=== PATIENT | male | born 1970 | race Caucasian/White ===

== ENCOUNTER 2017-11-11 17:01 | Emergency (ER) | payer MEDICARE, OTHER ==
[~2017-11-11] VITALS: Ht 162.6 cm; Wt 63.5 kg
[~2017-11-11 17:01] MED LIST: ACET-73 GT; ACET650S11 RC; ACET650T10 GT; ACET650T10 PO; ALBU2.5V38 IH; AMIN30LI27 GT; ASCO500S2 GT; BISA10SU61 RC; CRAN3875 GT; DEXT1DRO6 EACHEYE; FERR300S JT; IPRA0.2S9 IH; LEVE250T2 GT; MAGN400O6 GT; METO25TA6 GT; MULT-1119 JT; NA P133E RC; Nutritional Supplement/Fiber GT; PANT40TA4 JT; PANT40VI GT; SACC250C GT; ZINC220C6 GT; [UNRECOGNIZED DRUG - CODE] IV
--- NOTE | 2017-11-11 17:02 | NUR ---
SHIKHA Bang FROM [facility] FOR FEVER >102 AND TACHYCARDIA SINCE 150. NEG SOB. SINUS TACHY 110. NEG OTHER DISTRESS. SAFETY MEASURES IN PLACE. AWAITING MD ROBERTSON. Addendum: 11/11/17 at 1803 by YASMINE PT NORMALLY OBTUNDED.
[2017-11-11] MEDS ORDERED: IV NS 0.9% 1,000 ML BAG IV ONE (17:30)
[2017-11-11] MEDS ORDERED: VANCOMYCIN 1 GM in IV D5W 250 ML IV ONE (17:30)
[2017-11-11] MEDS ORDERED: CEFEPIME 2 GM in IV D5W 50 ML IV ONE (17:30)
[2017-11-11] MEDS ORDERED: ACETAMINOPHEN 650 MG/SUPP.RECT RC ONE ×2 (17:30→18:14)
[2017-11-11 17:49] LABS: BASOPHILS % (AUTO) 0.2 % (0.0-2.0); EOSINOPHILS % (AUTO) 0.2 % (0.0-6.0); HEMATOCRIT 38 % (39-51); HEMOGLOBIN 12.7 g/dL (13.5-17.5); LYMPHOCYTES # (AUTO) 0.6 /CMM (0.8-4.8); LYMPHOCYTES % (AUTO) 4.1 % (20.0-44.0); MEAN CORPUSCULAR HEMOGLOBIN 31 PG (26.0-33.0); MEAN CORPUSCULAR HGB CONC 34 g/dl (31.0-36.0); MEAN CORPUSCULAR VOLUME 92 fL (80-96); MONOCYTES # (AUTO) 0.2 /CMM (0.1-1.30); MONOCYTES % (AUTO) 1.3 % (2.0-12.0); NEUTROPHILS % (AUTO) 94.2 % (43.0-81.0); PLATELET COUNT (AUTO) 379 /CMM (150-450); RDW COEFFICIENT OF VARIATION 13.2 (11.5-15.0); RED BLOOD CELL COUNT(AUTO) 4.12 MIL/uL (4.5-6.0); WHITE BLOOD COUNT (AUTO) 14.9 K/uL (4.3-11.0)
--- NOTE | 2017-11-11 17:56 | NUR ---
MD LEVINE WITH NON CONTRAST CT AT THIS TIME
--- NOTE | 2017-11-11 18:01 | NUR ---
PT BROUGHT TO CT
[2017-11-11 18:09] LABS: CARBON DIOXIDE 25 mmol/L (21-32); CHLORIDE 101 mmol/L (98-107); GLUCOSE 156 mg/dL (74-106); POTASSIUM 3.8 mmol/L (3.5-5.1); SODIUM SERUM 136 mmol/L (136-145); UREA NITROGEN, BLOOD 15 mg/dL (7-18)
[2017-11-11 18:15] LABS: ALANINE AMINOTRANSFERASE 30 U/L (12-78); ALBUMIN 3.4 g/dL (3.4-5.0); ALKALINE PHOSPHATASE 126 U/L (46-116); ASPARTATE AMINOTRANSFERASE 14 U/L (15-37); BILIRUBIN,DIRECT 0.3 mg/dL (0.0-0.2); BILIRUBIN,TOTAL 0.7 mg/dL (0.2-1.0); TOTAL PROTEIN, SERUM 7.8 g/dL (6.4-8.2)
[2017-11-11 18:17] LABS: TROPONIN I < 0.017 ng/mL (0.00-0.056)
[2017-11-11] MEDS ORDERED: MULT-439 GT (18:19)
[2017-11-11] MEDS ORDERED: CRAN3875 GT (18:19)
[2017-11-11] MEDS ORDERED: LACT-96 GT (18:19)
[2017-11-11] MEDS ORDERED: POTA20LI4 GT (18:19)
[2017-11-11] MEDS ORDERED: SACC250C GT (18:19)
[2017-11-11] MEDS ORDERED: DOCU50LI GT (18:19)
[2017-11-11] MEDS ORDERED: CITI500C GT (18:19)
[2017-11-11] MEDS ORDERED: HEPA50007 SQ (18:19)
[2017-11-11] MEDS ORDERED: FENO145T35 GT (18:19)
[2017-11-11] MEDS ORDERED: RANI15SY GT (18:19)
[2017-11-11] MEDS ORDERED: FURO20TA4 GT (18:19)
[2017-11-11] MEDS ORDERED: ATOR10TA GT (18:19)
[2017-11-11 18:27] LABS: INR 1.11 (0.85-1.15)
--- NOTE | 2017-11-11 18:30 | NUR ---
STRAIGHT CATH ORDERED BY .
[2017-11-11] MEDS ORDERED: TRIA15OI2 TP (18:31)
[2017-11-11] MEDS ORDERED: GEL100GE TD (18:31)
[2017-11-11 18:55] LABS: APPEARANCE,URINE Clear (CLEAR); BILIRUBIN,URINE Negative (NEGATIVE); BLOOD, URINE Negative Ery/uL (NEGATIVE); COLOR,URINE Yellow (YELLOW); KETONES,URINE Negative (NEGATIVE); LEUKOCYTE ESTERASE ,URINE Negative (NEGATIVE); NITRITE, URINE Negative (NEGATIVE); PH,URINE 8.5 (5.0-8.0); PROTEIN,URINE Negative (NEGATIVE); UGLUCOSE Negative (NEGATIVE); UROBILINOGEN,URINE 0.2 EU/dL (0.2)
--- NOTE | 2017-11-11 20:00 | NUR ---
SISTER, RENEA, BROTHER, DARELL, , CALL THEM WITH UPDATES AND WHEN PT GETS TRANSFERRED.
--- NOTE | 2017-11-11 20:04 | NUR ---
CALLED , LEFT MESSAGE ON VOICEMAIL
--- NOTE | 2017-11-11 20:15 | NUR ---
PT BROUGHT TO CT
[2017-11-11 20:20] LABS: LYMPHOCYTES % (MANUAL) 5 % (16-48); MONOCYTES % (MANUAL) 2 % (0-11.0); NEUTROPHILS % (MANUAL) 93 (42-76)
[2017-11-11] MEDS ORDERED: IOHEXOL-300 100 ML VIAL IV ONE ×2 (20:21→22:05)
--- NOTE | 2017-11-11 20:25 | NUR ---
REPAGED DR. COMBS
--- NOTE | 2017-11-11 20:31 | NUR ---
ASSISTING MD AT BEDSIDE WITH CENTRAL LINE INSERTION.
--- NOTE | 2017-11-11 20:34 | NUR ---
VERBAL ORDERS URINARY CATHETER INSERTION BY DR. BECERRA
--- NOTE | 2017-11-11 21:08 | NUR ---
CALLED [facility], SPOKE WITH TARYN, PRESENTED PT, SAID TO CALL HIM BACK AT [phone] WITH AN UPDATED TEMP. AND TO FAX HIM PT INFO AND FACESHEET TO [phone]
--- NOTE | 2017-11-11 21:40 | NUR ---
ORDER FOR CUFF TRACH. UNSUCCESSFUL ATTEMPT OF TRACH TUBE CHANGE TO A CUFF TRACH TUBE PER DR. RUCKER AT BEDSIDE REQUEST. PLACED PREVIOUS CUFFLESS TRACH PER DR. RUCKER REQUEST. SX DONE. BLEEDING NOTED. WILL CONTINUE TO MONITOR.
--- NOTE | 2017-11-11 21:46 | NUR ---
New IV line needed before CT HEAD scan, ER will call.
--- NOTE | 2017-11-11 22:11 | NUR ---
[place] [facility] [place]
--- NOTE | 2017-11-11 22:58 | NUR ---
CALLED [facility], TRANSFERRED CALL TO
--- NOTE | 2017-11-11 22:59 | NUR ---
RECEIVED CALL FROM TARYN AT [facility] [place], HE INFORMED ME ALL THE NEUROSURGEONS ARE IN SURGERY RIGHT NOW AND THAT HE CAN NOT PRESENT THE CASE TO THEM AND THAT HE ALSO HAS ANOTHER NEUROSURGERY CASE TO PRESENT WELL, HE WILL KEEP ME UPDATED THOUGH.
--- NOTE | 2017-11-11 23:28 | NUR ---
ENDORSED TO JASON KNOTT. PT STABLE CONDITION. SAFETY MEASURES IN PLACE.
--- NOTE | 2017-11-11 23:31 | NUR ---
Arturo vaca in [facility] - 11/11/17 at 2332 by YASMINE ASSISTING MD AT BEDSIDE WITH CENTRAL LINE INSERTION.
--- NOTE | 2017-11-11 23:40 | NUR ---
CALLED TARYN AT [facility] [place] TO ASK FOR AN ETA, HE SAID HE CAN NOT GIVE ME AN ETA AND THAT HE IS JUST WAITING TO HEAR FROM THE NEUROSURGEONS.
--- NOTE | 2017-11-11 23:52 | NUR ---
ENDORSED TO NURSE FUNK FOR SOLA.
--- NOTE | 2017-11-11 23:56 | NUR ---
patient is resting in er bed in youth nutritional monitor. patient skin is warm to touch, noted to be tachycardic in the 140's. v/s updated. will continue to monitor, awaiting call back for tranfer details
--- NOTE | 2017-11-12 | NUR ---
TURNED PATIENT TO LEFT SIDE
--- NOTE | 2017-11-12 01:02 | NUR ---
SPOKE TO TARYN ANDREWS AND STATES "ALL NEURO SURGEONS ARE STILL IN THE OR. I WILL LET YOU KNOW WHEN ONE COMES OUT".
--- NOTE | 2017-11-12 02:59 | NUR ---
CALLED [facility] AGAIN AND SPOKE TO REA CENTENO "THE NEURO SURGEONS ARE STILL IN THE OR AND WE ARE JUST WAITING FOR A CALL BACK". DR. BHATTI NOTIFIED
--- NOTE | 2017-11-12 03:48 | NUR ---
PATIENT IS RESTING IN ER BED, NO DISTRESS NOTED. WILL CONTINUE TO MONITOR. PATIENT IS NOTED TO BE TACHYCARDIC IN THE 140'S. BP WNL, WILL CONTINUE TO MONITOR
--- NOTE | 2017-11-12 04:15 | NUR ---
RESPIRATORY DISTRESS NOTED. PT TACHYPNEIC AND DIAPHORETIC. SATING 90% ON 35% FIO2. INCREASED FIO2 98% ON COOL AEROSOL AND ABG WAS TAKEN. POST ABG RESULTS SX PATIENT AND NOTICED MUCUS PLUG IN THE TRACH. MUCUS PLUG REMOVED AND PT APPEARS MORE COMFORTABLE. PT SATING AT 100% ON 98% FIO2. KEPT PT ON COOL AEROSOL ON 10L AT 98% FIO2 PER DR. BHATTI REQUEST. WILL CONTINUE TO MONITOR. Addendum: 11/12/17 at 0531 by SHOAIB HENDERSON RT Amended: Links added.
[2017-11-12 04:16] LABS: ABG BASE EXCESS -1.1 mmol/L; ABG OXYGEN SATURATION 93.2 % (92.0-98.5); ABG PCO2 31.1 mmHg (35.0-45.0); ABG PH 7.462 (7.350-7.450); ABG PO2 63.2 mmHg (75.0-100.0); AaDO2 604.3 mmHg; COHb 0.8 % (0.5-1.5); MetHb 0.5 % (0.0-1.5); SITE, ABG Right Radial
--- NOTE | 2017-11-12 05:04 | NUR ---
CALLED [facility] FOR UPDATES AND INFORMED "THEY ARE STILL IN OR, I CALLED ONE HOUR AGO AND THEY ARE STILL THERE".
--- NOTE | 2017-11-12 06:06 | NUR ---
RECEIVED CALL BACK FROM TARYN KING). STATES "I PRESENTED THE CASE TO KAYLEIGH THE RESIDENT, YOU WILL RECEIVED A CALL BACK SOON"
--- NOTE | 2017-11-12 06:20 | NUR ---
[place] [facility] [place] AND STATED "PT IS ACCEPTED TO [facility] BY DR. SHELDON THE RESIDENT. PT ERICKA GO TO ICU BUT NO BEDS AT THIS TIME; MAY BE AFTER 0900 BUT NO GUARANTEES".
--- NOTE | 2017-11-12 06:29 | NUR ---
PATIENT RESTING IN ER BED, NO DISTRESS NOTED, SKIN WARM. PATIENT IS NOTED TO BE TACHYCARDIC IN THE 140'S
--- NOTE | 2017-11-12 06:29 | NUR ---
VITAL SIGNS UPDATED.
--- NOTE | 2017-11-12 06:30 | NUR ---
PATIENT TURNED TO LEFT SIDE
--- NOTE | 2017-11-12 07:12 | NUR ---
RECEIVED REPORT FOR SOLA.
--- NOTE | 2017-11-12 07:12 | NUR ---
REPORT GIVEN TO ESPINOZA GOMEZ FOR SOLA
[2017-11-12] MEDS ORDERED: IV NS 0.9% 1,000 ML BAG IV ONE ×2 (07:30→14:00)
--- NOTE | 2017-11-12 07:30 | NUR ---
RT RECD PT ON 10L 98% 02 TRACHED WITH SHILEY 6 SATTING 100% TITRATED DOWN 02 10L 80%
--- NOTE | 2017-11-12 08:56 | NUR ---
CALLED [facility] FOR TRANSFER UPDATE. NO BEDS AVAILABLE AT THIS TIME.
--- NOTE | 2017-11-12 09:20 | NUR ---
RT TITRATED DOWN 02 10L 60% SATTING 98%
--- NOTE | 2017-11-12 10:10 | NUR ---
RT CHANGED PT TRACH TUBE FROM UNCUFFED SHILEY 6 TO CUFFED SHILEY [address] PLAZA PT ON RESP DISTRESS NEEDS TO BE PLACE 0ON MECH VENT Addendum: 11/12/17 at 1101 by JAKUB OLIVER RT TRACH TUBE CHANGED MINIMAL BLEEDING NOTED BILATERAL CHEST RISE EQUAL BREATH SOUND. SX YELLOW - RED SECRETIONS NO COMPLICATIONS
[2017-11-12] MEDS ORDERED: ACETAMINOPHEN 650 MG/SUPP.RECT RC ONE ×2 (10:13→10:30)
[2017-11-12 10:46] VITALS: BP 92/71
--- NOTE | 2017-11-12 10:58 | NUR ---
RT PLACE PT ON [facility] VENT AC 16 500 60% 02 +0 PEEP RN AND MD AWARE. VENT PLUGGED IN RED OUTLET AMBU BAG ON HOB ALARMS ON AND AUDIBLE PT SEEM COMFORTABLE ON ORDERED SETTINGS WILL CONTINUE TO MONITOR
--- NOTE | 2017-11-12 11:16 | NUR ---
AARON SIM: RN FOR ADMISSION AT [facility] [phone]
[2017-11-12 12:15] VITALS: BP 104/69
--- NOTE | 2017-11-12 12:26 | NUR ---
Spoke with Beatris [phone], She is working on paperwork told to follow-up in one hour.
--- NOTE | 2017-11-12 13:18 | NUR ---
Patient accepted at [facility] ICU Unit [address] Accept[address] Mcmahon Number for report is [phone] Bed control number is [phone]
--- NOTE | 2017-11-12 13:37 | NUR ---
[facility] ETA 1530 Transfer #[id number]
[2017-11-12] MEDS ORDERED: IBUPROFEN 600 MG TABLET PO ONE ×2 (13:56→14:00)
[2017-11-12 14:12] VITALS: BP 118/79
--- NOTE | 2017-11-12 14:24 | NUR ---
REPORT GIVEN TO MIHAELA GOMEZ FOR SOLA UPON TRANSFER.
[2017-11-12] MEDS ORDERED: VANCOMYCIN 1.5 GM in IV D5W 500 ML IV ONE (14:30)
[2017-11-12] MEDS ORDERED: CEFEPIME 2 GM in IV D5W 100 ML IV ONE (14:30)
[2017-11-12 16:22] VITALS: BP 112/67
[2017-11-12 16:35] VITALS: BP 104/64
--- NOTE | 2017-11-12 16:37 | NUR ---
REPORT GIVEN TO EMT AT BEDSIDE. PATIENT TRANSFERED TO [facility]. RN, MIHAELA TO PROVIDE SOLA UPON TRANSFER.
== END 2017-11-12 16:37 | disposition short-term general hospital (02) ==
LOC: ER 17:02
DX: A41.9 Sepsis, unspecified organism (principal); T85.09XA Other mechanical complication of ventricular intracranial (communicating) shunt, initial encounter; R50.9 Fever, unspecified; I10 Essential (primary) hypertension; J96.10 Chronic respiratory failure, unspecified whether with hypoxia or hypercapnia; Z87.820 Personal history of traumatic brain injury; R00.0 Tachycardia, unspecified; Z93.0 Tracheostomy status; Z93.1 Gastrostomy status
CPT/HCPCS: 36415; 36569; 36600 ×2; 51701; 70450; 70460; 71045 ×2; 80048; 80076; 81001; 82803; 83605 ×2; 84145; 84484; 85025; 85730; 87040 ×2; 87081; 87086; 93005; 94640; 96361; 96365; 96367; 96368; 99291; A4606 ×2; A7526; C1751 ×2; J0692 ×2; J3370 ×2; J7030 ×4; J7040; J7060 ×4; Q9967 ×2; 81000-TC; Z7610

== ENCOUNTER 2019-03-28 17:44 | Inpatient (IN) | payer MEDICARE, OTHER ==
[~2019-03-28] VITALS: Ht 182.9 cm; Wt 68.5 kg
[~2019-03-28 17:44] MED LIST changes: -ACET650S11 RC; -ACET650T10 GT; -ACET650T10 PO; -ALBU2.5V38 IH; -AMIN30LI27 GT; +ASCO-492 PO; -ASCO500S2 GT; -BISA10SU61 RC; +CHLO473M3 MM; +CITI500C GT; -CRAN3875 GT; +DEXT15DR6 OP; -DEXT1DRO6 EACHEYE; +DOCU50LI GT; +ENOX40DI SQ; +FAMO20TA8 PO; -FERR300S JT; +FERR325T23 PO; +FOLI1TAB16 GT; -LEVE250T2 GT; +LEVE500T9 GT; +MERO1VIA3 IV; -METO25TA6 GT; -MULT-1119 JT; -NA P133E RC; -Nutritional Supplement/Fiber GT; -PANT40TA4 JT; -PANT40VI GT; +POLY17PO4 PO; +PROT946L PO; -SACC250C GT; +THIA100V2 GT; +THIA100V2 PO; +VITA1TAB20 PO; -ZINC220C6 GT; -[UNRECOGNIZED DRUG - CODE] IV
--- NOTE | 2019-03-28 18:00 | NUR ---
FERMIN FROM [facility] FOR RAPID HR = 150, ON TRACH, GT PATENT, CONNECTED TO THE MONITOR AND PULSE OX. KEPT COMFORTABLE, WILL CONTINUE TO MONITOR ACCORDINGLY.
--- NOTE | 2019-03-28 18:23 | NUR ---
CALLED NURSING SUP FOR PICC LINE
[2019-03-28] MEDS ORDERED: ACETAMINOPHEN ES 500 MG TABLET NG ONE (18:30)
[2019-03-28] MEDS ORDERED: IV NS 0.9% 1,000 ML BAG IV ONE ×2 (18:30→19:30)
[2019-03-28] MEDS ORDERED: MULT-439 GT (18:31)
[2019-03-28] MEDS ORDERED: NUT.237L31 GT (18:31)
[2019-03-28] MEDS ORDERED: CRAN3875 GT (18:31)
[2019-03-28] MEDS ORDERED: ACET-73 PO (18:31)
[2019-03-28] MEDS ORDERED: SENN8.8S12 GT (18:31)
[2019-03-28] MEDS ORDERED: BISA10SU61 RC (18:31)
[2019-03-28] MEDS ORDERED: DIGO125T PO (18:31)
[2019-03-28] MEDS ORDERED: INSU100I35 SQ (18:31)
[2019-03-28] MEDS ORDERED: NUTR1PAC14 PO (18:31)
[2019-03-28] MEDS ORDERED: PROT946L PO (18:31)
[2019-03-28] MEDS ORDERED: ACET-868 GT (18:31)
[2019-03-28] MEDS ORDERED: ACETAMINOPHEN ES 500 MG TABLET ONE (18:37)
[2019-03-28 18:47] LABS: BASOPHILS # (AUTO) 0.2 /CMM (0.0-0.2); BASOPHILS % (AUTO) 0.7 % (0.0-2.0); EOSINOPHILS % (AUTO) 0.1 % (0.0-6.0); HEMATOCRIT 32 % (39-51); HEMOGLOBIN 10.7 g/dL (13.5-17.5); LYMPHOCYTES # (AUTO) 1.3 /CMM (0.8-4.8); LYMPHOCYTES % (AUTO) 5.3 % (20.0-44.0); MEAN CORPUSCULAR HGB CONC 33 g/dl (31.0-36.0); MEAN CORPUSCULAR VOLUME 88 fL (80-96); MONOCYTES # (AUTO) 1.8 /CMM (0.1-1.30); MONOCYTES % (AUTO) 7.6 % (2.0-12.0); NEUTROPHILS # (AUTO) 20.7 /CMM (1.8-8.9); NEUTROPHILS % (AUTO) 86.3 % (43.0-81.0); PLATELET COUNT (AUTO) 291 /CMM (150-450); RED BLOOD CELL COUNT(AUTO) 3.68 MIL/uL (4.5-6.0); WHITE BLOOD COUNT (AUTO) 24.1 K/uL (4.3-11.0)
[2019-03-28 19:02] LABS: CALCIUM, SERUM 9.3 mg/dL (8.5-10.1); CARBON DIOXIDE 26 mmol/L (21-32); CHLORIDE 94 mmol/L (98-107); CREATININE 0.8 mg/dL (0.6-1.3); GLUCOSE 265 mg/dL (74-106); POTASSIUM 3.9 mmol/L (3.5-5.1); SODIUM SERUM 134 mmol/L (136-145); UREA NITROGEN, BLOOD 16 mg/dL (7-18)
[2019-03-28 19:08] LABS: ALANINE AMINOTRANSFERASE 40 U/L (12-78); ALBUMIN 3.4 g/dL (3.4-5.0); ALKALINE PHOSPHATASE 114 U/L (46-116); ASPARTATE AMINOTRANSFERASE 12 U/L (15-37); BILIRUBIN,DIRECT 0.1 mg/dL (0.0-0.2); BILIRUBIN,TOTAL 0.8 mg/dL (0.2-1.0); TOTAL PROTEIN, SERUM 8.2 g/dL (6.4-8.2)
--- NOTE | 2019-03-28 19:14 | NUR ---
4.4 lactic acid, md moore aware
--- NOTE | 2019-03-28 19:24 | NUR ---
report given to Marilou GOMEZ for haroldo. Patient is going to room 261
--- NOTE | 2019-03-28 19:44 | NUR ---
report given to Betina GOMEZ to continue care.
[2019-03-28 19:53] LABS: APPEARANCE,URINE Slightly Cloudy (CLEAR); BILIRUBIN,URINE Negative (NEGATIVE); BLOOD, URINE Moderate Ery/uL (NEGATIVE); KETONES,URINE Negative (NEGATIVE); LEUKOCYTE ESTERASE ,URINE Negative (NEGATIVE); NITRITE, URINE Negative (NEGATIVE); PH,URINE 5.5 (5.0-8.0); PROTEIN,URINE 30 mg/dl (NEGATIVE); UGLUCOSE Negative (NEGATIVE); UROBILINOGEN,URINE 0.2 EU/dL (0.2)
[2019-03-28] MEDS ORDERED: CEFTRIAXONE 1GM BAG (ER ONLY) 50 ML IV ONE ×2 (19:55→20:00)
[2019-03-28 19:58] LABS: COLOR,URINE YELLOW (YELLOW)
--- NOTE | 2019-03-28 20:21 | NUR ---
pt was transferred to ICU under ACLS
[2019-03-28 20:22] VITALS: BP 134/75
[2019-03-28 20:24] LABS: BACTERIA,URINE Many /HPF (None Seen); SQUAMOUS EPITHELIAL CELL,UR Few /HPF (None Seen)
[2019-03-28 20:30] VITALS: BP 134/75
[2019-03-28] MEDS ORDERED: MAG HYDROX/AL HYDROX/SIMETH 30 ML UDC PO PRN (20:30)
[2019-03-28] MEDS ORDERED: ONDANSETRON HCL/PF 4 MG/2 ML VIAL IVP PRN (20:30)
[2019-03-28] MEDS ORDERED: MAGNESIUM HYDROXIDE 30 ML UDC PO PRN (20:30)
[2019-03-28] MEDS ORDERED: Z GUARD REMEDY 2 OZ OINT TP PRN (20:30)
[2019-03-28] MEDS ORDERED: ZOLPIDEM TARTRATE 5 MG TABLET PO PRN (20:30)
[2019-03-28 20:36] LABS: ABG BASE EXCESS -0.1 mmol/L; ABG PCO2 48.3 mmHg (35.0-45.0); ABG PH 7.346 (7.350-7.450); ABG PO2 143.1 mmHg (75.0-100.0); AaDO2 521.6 mmHg; COHb 0.3 % (0.5-1.5); MetHb 0.9 % (0.0-1.5); O2Hb 96.8 % (94.0-97.0); SITE, ABG Right Radial; VENT MODE, BG MASK
[2019-03-28 21:00] VITALS: BP 118/73
[2019-03-28] MEDS ORDERED: LEVOFLOXACIN 750 MG /D5W 150ML 750 MG in PREMIX 1 EA IV SCH (21:00)
--- NOTE | 2019-03-28 21:00 | NUR ---
RN NOTES ADMITTED PATIENT FROM ER OBTUNDED WITH TRACH ON COOL AEROSOL @ 15LPM USING HIS ACCESSORY MUSCLE TO BREATH, TACHYPNEIC RESP 37 AND TACHYCARDIC HR 137. PLACED ON SALES TECHNICIAN HOME THEATER REVEALS ST. HOB ELEVATED SUCTIONED PATIENT WITH SMALL MUCUS PLUGGED AND PATIENT STARTED TO BREATH BETTER. PATIENT DIAGNOSED WITH SEVERE SEPSIS FOR LACTIC ACID OF 4.4 2 MORE LITERS OF NS BOLUS ONGOING. TEMPERATURE AT THIS TIME IS 100.8 DEGREE FHARENHEIGHT ON AXILLARY AND 102.8 ON CORE TEMP VIA RECTAL. IV SITE ON LEIGHTON AND LEFT FOOT. SKIN ASSESSMENT DONE PHOTO TAKEN. COOLING MEASURES PROVIDED.
[2019-03-28] MEDS: LINEZOLID RTU BAG 600 MG in PREMIX 1 EA IV SCH (21:06)
[2019-03-28] MEDS: IV NS 0.9% 1,000 ML IV PRN (21:25)
[2019-03-28 22:30] VITALS: BP 113/75
[2019-03-28 23:00] VITALS: BP 118/76
--- NOTE | 2019-03-28 23:00 | NUR ---
RN NOTES BEASLEY CATHETER INSERTED WITH YELLOW CLEAR URINE OUTPUT. PICC LINE INSERTED WAITING FOR CXR RESULT TO CONFIRM PLACEMENT.
[2019-03-28 23:30] VITALS: BP 108/71
[2019-03-29] VITALS (37 sets, daily range): BP systolic 99–147; BP diastolic 63–76
--- NOTE | 2019-03-29 | NUR ---
RN NOTES INFORMED DR. SAHNI THAT CXR RESULT SHOWS PICC LINE IS IN THE PROXIMAL RIGHT ATRIUM AND LACTIC REFLEX RESULT 2.3 WAS REPORTED BY LAB. PER MD TO PULL THE PICC LINE ABOUT 4 CM OR RECOMMEND BY PICC NURSE AND REPEAT CXR. CALLED PICC LINE NURSE TO ADJUST.
[2019-03-29] MEDS ORDERED: PIPERACILLIN /TAZOBACTAM 3.375 G VIAL IV ONE (00:04)
[2019-03-29] MEDS: ZOSYN IVPB 3.375 G in IV D5W 50ml IV SCH ×2 (00:59→06:02)
--- NOTE | 2019-03-29 01:00 | NUR ---
RN NOTES PICC LINE NURSE CAME BACK AND ADJUST PICC LINE ORDERED. CXR DONE WITH THE RESULT OF THE TIP OF THE LINE IS IN CAVOATRIAL JUNCTION. PER MD OK TO USE THE LINE. RESTARTED IVF ORDERED. PATIENT IS RESTING AT THIS TIME. REMAINED ST ON 130'S COOLING BLANKET KEPT IN PLACED. TEMPERATURE IS 102.7 AT THIS TIME. IV ATB ONGOING WELL IVF . WILL CONTINUE TO MONITOR.
[2019-03-29] MEDS: ACETAMINOPHEN 325 MG TABLET PO PRN ×3 (03:48→22:05)
[2019-03-29 04:26] LABS: BASOPHILS # (AUTO) 0.1 /CMM (0.0-0.2); BASOPHILS % (AUTO) 0.5 % (0.0-2.0); EOSINOPHILS % (AUTO) 0.1 % (0.0-6.0); HEMATOCRIT 28 % (39-51); LYMPHOCYTES # (AUTO) 1.1 /CMM (0.8-4.8); MEAN CORPUSCULAR HGB CONC 33 g/dl (31.0-36.0); MEAN CORPUSCULAR VOLUME 88 fL (80-96); MONOCYTES # (AUTO) 2.4 /CMM (0.1-1.30); MONOCYTES % (AUTO) 8.7 % (2.0-12.0); NEUTROPHILS # (AUTO) 23.9 /CMM (1.8-8.9); NEUTROPHILS % (AUTO) 86.7 % (43.0-81.0); PLATELET COUNT (AUTO) 210 /CMM (150-450); RED BLOOD CELL COUNT(AUTO) 3.12 MIL/uL (4.5-6.0); WHITE BLOOD COUNT (AUTO) 27.5 K/uL (4.3-11.0)
[2019-03-29 04:51] LABS: CALCIUM, SERUM 8.5 mg/dL (8.5-10.1); CREATININE 0.7 mg/dL (0.6-1.3); MAGNESIUM 2.1 mg/dL (1.8-2.4); PHOSPHORUS 2.3 mg/dL (2.5-4.9); POTASSIUM 3.5 mmol/L (3.5-5.1)
--- NOTE | 2019-03-29 05:10 | NUR ---
RN NOTES VIRAJ FROM LAB CALLED REPORTED CRITICAL VALUE OF LACTIC ACID 2.8, DR. SAHNI MADE AWARE. CONTINUE WITH POC.
[2019-03-29 05:13] LABS: THYROID STIMULATING HORMONE 0.947 uIU/mL (0.358-3.74)
--- NOTE | 2019-03-29 07:11 | NUR ---
RN NOTES PATIENT REMAINED ST HR 127, LATEST TEMPERATURE 101.3 COOLING MEASURES AND COOLING BLANKET KEPT IN PLACED. ALL IV ATB ADMINISTERED ORDERED. CONTINUE ON IVF NS @ 150 ML/HR BEASLEY CATH DRAINED WELL KEPT OFF FROM THE FLOOR. KEPT PT CLEAN AND DRY. TURNED AND REPOSITIONED Q2H AND PRN. WILL ENDORSED CONTINUITY OF CARE TO AM NURSE.
--- NOTE | 2019-03-29 07:20 | NUR ---
RN INITIAL NOTES RECEIVED PT OBTUNDED, TRACH IN PLACE. ON T-PIECE 35%. HOB ELEVATED. NO SIGNS OF PAIN NOTED. PT SINUS TACHYCARDIA ON MONITOR. PT HAS FEVER, TEMP 101.3. COOLING BLANKET ON. LEIGHTON PICC IN PLACE. IVF INFUSING. GT IN PLACE, CLAMPED. FC IN PLACE. NO HEMATURIA NOTED. BLE ELEVATED. PT COMFORTABLE. WILL MONITOR
[2019-03-29] MEDS: PANTOPRAZOLE 40 MG VIAL IV SCH (08:30)
[2019-03-29] MEDS: IV NS 0.9% 1,000 ML IV PRN ×2 (08:30→17:23)
[2019-03-29] MEDS: LINEZOLID RTU BAG 600 MG in PREMIX 1 EA IV SCH ×2 (08:30→21:03)
[2019-03-29] MEDS: ENOXAPARIN SODIUM 40 MG/0.4 ML DISP.SYRIN SQ SCH (09:59)
--- NOTE | 2019-03-29 10:15 | NUR ---
RN NOTES SEEN AND EXAMINED BY DR TOMAS GARCIA. AWARE OF LAB VALUES AND CXR RESULT. PT FEBRILE, T 101.5. COOLING BLANKET ON. TYLENOL ORDERED. ON IVF AND IV ATBS. CULTURES PENDING. ORDERED ID CONSULT. WILL CLOSELY MONITOR
[2019-03-29] MEDS ORDERED: MEROPENEM 500 MG in IV NS 0.9% 50 ML IV ONE (11:00)
[2019-03-29] MEDS ORDERED: POTASSIUM PHOSPHATE MM 7.5 MMOL in IV D5W 100 ML IV SCH (12:00)
[2019-03-29] MEDS: MEROPENEM 1 G in IV NS 0.9% 100 ML IV SCH (17:17)
--- NOTE | 2019-03-29 18:52 | NUR ---
RN CLOSING NOTES PT OBTUNDED. TRACH IN PLACE. TOLERATING T-PIECE WELL. HOB ELEVATED. NO RESPIRATORY DISTRESS NOTED. NO SIGNS OF PAIN NOTED. SUCTIONED Q2 AND NEEDED. AFEBRILE. TEMP 98.8. REMAINS TACHYCARDIC, 112. IVF INFUSING. FC IN PLACE. ADEQUATE OUTPUT NOTED. KEPT CLEAN AND DRY. REPOSITIONING Q2. BLE ELEVATED. WILL ENDORSE FOR CONTINUITY OF CARE.
--- NOTE | 2019-03-29 19:30 | NUR ---
RN NOTES PATIENT EYES OPEN ON ISOLATION PRECAUTION FOR HX. OF ESBL URINE. OBTUNDED. TRACH PORTEX 7 AND COOL AEROSOL @ 8LPM AND 35% TOLERATED WELL SATURATION 98%. TEMPERATURE AT THIS TIME WAS 99.3. WARMTH TO TOUCH. SINUS TACHY HR 116 ON TELE MONITOR. IV SITE ON OLIVER PICC INTACT AND PATENT WITH GOOD BLOOD RETURN RUNNING WITH NS @ 150 ML/HR. TURNED AND REPOSITIONED FOR SKIN MANAGEMENT. KEPT PT CLEAN AND DRY. WILL CONTINUE TO MONITOR.
[2019-03-30] VITALS (40 sets, daily range): BP systolic 99–156; BP diastolic 60–77
[2019-03-30] MEDS: IV NS 0.9% 1,000 ML IV PRN ×3 (02:21→21:38)
[2019-03-30] MEDS: MEROPENEM 1 G in IV NS 0.9% 100 ML IV SCH ×3 (02:24→17:47)
[2019-03-30 04:19] LABS: BASOPHILS # (AUTO) 0.1 /CMM (0.0-0.2); BASOPHILS % (AUTO) 0.3 % (0.0-2.0); EOSINOPHILS % (AUTO) 0.1 % (0.0-6.0); HEMATOCRIT 25 % (39-51); HEMOGLOBIN 8.2 g/dL (13.5-17.5); LYMPHOCYTES # (AUTO) 0.8 /CMM (0.8-4.8); LYMPHOCYTES % (AUTO) 2.5 % (20.0-44.0); MEAN CORPUSCULAR HGB CONC 33 g/dl (31.0-36.0); MEAN CORPUSCULAR VOLUME 89 fL (80-96); MONOCYTES # (AUTO) 1.8 /CMM (0.1-1.30); MONOCYTES % (AUTO) 5.7 % (2.0-12.0); NEUTROPHILS % (AUTO) 91.4 % (43.0-81.0); PLATELET COUNT (AUTO) 193 /CMM (150-450); RED BLOOD CELL COUNT(AUTO) 2.83 MIL/uL (4.5-6.0)
[2019-03-30 04:28] LABS: CALCIUM, SERUM 8.7 mg/dL (8.5-10.1); CREATININE 0.6 mg/dL (0.6-1.3); POTASSIUM 3.2 mmol/L (3.5-5.1)
[2019-03-30 04:39] LABS: WHITE BLOOD COUNT (AUTO) 31.7 K/uL (4.3-11.0)
[2019-03-30 05:10] LABS: LYMPHOCYTES % (MANUAL) 1 % (16-48); MONOCYTES % (MANUAL) 6 % (0-11.0); NEUTROPHILS % (MANUAL) 91 (42-76)
[2019-03-30 05:11] LABS: BAND % (MANUAL) 2 % (0.0-5.0)
[2019-03-30] MEDS: ACETAMINOPHEN 325 MG TABLET PO PRN (06:21)
--- NOTE | 2019-03-30 06:47 | NUR ---
RN NOTES REMAINED ST 110-120, NO SIGNIFICANT CHANGES. WITH LOW GRADE FEVER TMAX 100 DEGREE FHARENHEIGHT. COOLING MEASURES PROVIDED. NO ACUTE RESPIRATORY DISTRESS. TRACH AND COOL AEROSOL TOLERATED WELL. SUCTIONED NEEDED AND Q2H. GT INTACT AND PATENT. IV PICC LINE INTACT WITH ONGOING IVF NS @ 150 ML/HR. BEASLEY CATH DRAINED WELL. KEPT PT CLEAN AND DRY. TURNED ND REPOSITIONED Q2H AND PRN. WILL CONTINUE POC.
--- NOTE | 2019-03-30 07:56 | NUR ---
WOUND CARE CONSULT: PT PRESENTS WITH MULTIPLE AREAS OF SCARRING INCLUDING LEFT LATERAL LOWER LEG AND HEEL, RT LATERAL ANKLE AND SACRUM EXTENDING TO BILATERAL BUTTOCKS WITH RASH AND PEELING SKIN TO BUTTOCKS, ALL PRESENT ON ADMISSION. RECOMMENDATIONS MADE FOR SKIN CARE AND PROTECTION. DISCUSSED WITH NURSING STAFF. FIRST STEP LOW AIRLOSS MATTRESS ON ORDER. WILL SEE PRN. CURRENT LIA SCORE IS 9.
--- NOTE | 2019-03-30 08:00 | NUR ---
ICU/RN INITIAL NOTES,AM RECEIVED BESIDE REPORT FROM NIGHT NURSE. PT OBTUNDED, DOES NOT FOLLOW COMMANDS. REACTS TO DEEP PAIN ONLY. PT ON COOL AEROSOL, MAINTAINING 02 SAT >95%. PT NOTED TO BE TACHYPNEIC, WITH LOW GRADE FEVER. SINUS TACH ON TELE. BEASLEY CATH IN PLACE, DRAINING YELLOW URINE. GTUBE CLAMPED. WOUND CONSULT COMPLETE, NEW ORDERS RECEIVED. PT WILL BE PLACED ON LOW AIR LOSS MATTRESS. ALL NEEDS WILL BE ATTENDED TO, SAFETY MEASURES TAKEN, BED IN LOW POSITION, SIDE RAILS UP, CALL LIGHT WITHIN REACH. LEFT UPPER ARM PICC LINE PATENT AND INTACT, IV FLUIDS INFUSING ORDERED.
[2019-03-30] MEDS: LINEZOLID RTU BAG 600 MG in PREMIX 1 EA IV SCH ×2 (08:11→21:31)
[2019-03-30] MEDS: PANTOPRAZOLE 40 MG VIAL IV SCH (08:11)
[2019-03-30] MEDS: ENOXAPARIN SODIUM 40 MG/0.4 ML DISP.SYRIN SQ SCH (08:12)
--- NOTE | 2019-03-30 08:45 | NUR ---
ICU/RN: 2 EPISODES OF LIQUID STOOL NOTED. PER MD WE ARE TO SEND C.DIFF SAMPLE. RECTAL TUBE INSERTED TO PROTECT THE SKIN.
[2019-03-30] MEDS: CLOTRIMAZOLE 1% 15 GM TUBE TP SCH ×2 (09:32→17:47)
[2019-03-30 09:51] LABS: ABG BASE EXCESS 1.2 mmol/L; ABG OXYGEN SATURATION 94.7 % (92.0-98.5); ABG PCO2 38.1 mmHg (35.0-45.0); ABG PO2 75.3 mmHg (75.0-100.0); AaDO2 166.1 mmHg; COHb 0.3 % (0.5-1.5); MetHb 0.7 % (0.0-1.5); O2Hb 93.8 % (94.0-97.0); SITE, ABG Right Radial; VENT MODE, BG CA 8L/M
--- NOTE | 2019-03-30 10:17 | NUR ---
RT PLACED PT ON VENT PER DR FOLEY. PER ORDER CHANGED TRACH TO PORTEX # 7 CUFFLESS TO CUFFED. VENT ALARMS CHECKED AND AUDIBLE. VENT PLUGGED IN RED OUTLET. SX WITH L RIANNA CORRALES. MADISON NOTED HOB. AIR VICE MARSHAL DONE AND TRACH IS SECURE. PT TOLERATING SETTINGS WELL, WILL CONTINUE TO MONITOR T/O SHIFT. Addendum: 03/30/19 at 1019 by HOSEA MUNOZ RT Amended: Links added.
--- NOTE | 2019-03-30 10:20 | NUR ---
ICU/RN: ABG DONE PER . POST GAS ORDERS RECEIVED TO PLACE PT ON VENTILATOR FOR SUPPORT. PT NOTED TO BE TACHYPNEIC, AND TACHYCARDIC WITH LOW GRADE FEVER. CUFFLESS TRACH CHANGED TO PORTEX 7 CUFFED AND PLACED ON VENT SETTINGS: AC 12, TV 500, 40% AND PEEP 5. WILL CONTINUE TO MONITOR AND ASSESS,
[2019-03-30] MEDS: POTASSIUM CL. PREMIX PERIPHER. 50 ML IV SCH ×4 (10:26→14:26)
--- NOTE | 2019-03-30 14:45 | NUR ---
ICU/RN: RIGHT FOOT NOTED TO BE MORE SWOLLEN THEN IN AM, WARMTH NOTED AND SLIGHT REDNESS. CALLED AND RECEIVED TLO ORDERS FOR VENOUS DOPPLER. DOPPLER DONE, NEGATIVE FOR DVT, WILL ELEVATE
--- NOTE | 2019-03-30 18:44 | NUR ---
ICU/RN ENDING NOTES,AM REPORT WILL BE ENDORSED TO NIGHT NURSE FOR SOLA. ALL NEEDS ATTENDED TO, SAFETY MEASURES TAKEN, BED IN LOW POSITION, SIDE RAILS UP, CALL LIGHT WITHIN REACH. PT VENT TO TRACH, NO DISTRESS NOTED. LOW GRADE TEMP NOTED, COOLING MEASURES TAKEN.
--- NOTE | 2019-03-30 20:00 | NUR ---
RN INITIAL NOTES,AM RECEIVED BESIDE REPORT FROM MORNING NURSE. PT OBTUNDED, DOES NOT FOLLOW COMMANDS. REACTS TO DEEP PAIN ONLY. PT IS VENT/ TRACH DEPENDANT AND TOLERATING SETTINGS WELL . PT NOTED TO HAVE LOW GRADE FEVER. SINUS TACH ON TELE. BEASLEY CATH IN PLACE, DRAINING YELLOW URINE.RECTAL TUBE IN PLACE DRAINING LIQUID STOOL. G-TUBE CLAMPED. ALL NEEDS WILL BE ATTENDED , SAFETY MEASURES TAKEN, BED IN LOW POSITION, SIDE RAILS UP, CALL LIGHT WITHIN REACH. LEFT UPPER ARM PICC LINE PATENT AND INTACT, IV FLUIDS INFUSING ORDERED.
[2019-03-31] VITALS (14 sets, daily range): BP systolic 93–125; BP diastolic 59–81
[2019-03-31] MEDS ORDERED: ACETAMINOPHEN 650 MG/SUPP.RECT RC PRN (00:30)
[2019-03-31] MEDS: MEROPENEM 1 G in IV NS 0.9% 100 ML IV SCH ×3 (02:36→17:01)
[2019-03-31 05:13] LABS: BASOPHILS # (AUTO) 0.1 /CMM (0.0-0.2); BASOPHILS % (AUTO) 0.3 % (0.0-2.0); EOSINOPHILS % (AUTO) 0.2 % (0.0-6.0); HEMATOCRIT 24 % (39-51); HEMOGLOBIN 7.7 g/dL (13.5-17.5); LYMPHOCYTES # (AUTO) 0.7 /CMM (0.8-4.8); LYMPHOCYTES % (AUTO) 2.8 % (20.0-44.0); MEAN CORPUSCULAR HGB CONC 32 g/dl (31.0-36.0); MEAN CORPUSCULAR VOLUME 89 fL (80-96); MONOCYTES # (AUTO) 1.4 /CMM (0.1-1.30); MONOCYTES % (AUTO) 5.1 % (2.0-12.0); NEUTROPHILS # (AUTO) 24.2 /CMM (1.8-8.9); NEUTROPHILS % (AUTO) 91.6 % (43.0-81.0); PLATELET COUNT (AUTO) 210 /CMM (150-450); WHITE BLOOD COUNT (AUTO) 26.4 K/uL (4.3-11.0)
[2019-03-31 05:22] LABS: CALCIUM, SERUM 8.6 mg/dL (8.5-10.1); CREATININE 0.4 mg/dL (0.6-1.3)
[2019-03-31] MEDS: IV NS 0.9% 1,000 ML IV PRN (05:22)
--- NOTE | 2019-03-31 07:21 | NUR ---
RN CLOSING NOTES PATIENT REMAINED ST DURING MY SHIFT, NO SIGNIFICANT CHANGES NOTED. WITH LOW GRADE FEVER TMAX 100.1 DEGREE FAHRENHEIT. COOLING MEASURES PROVIDED WITCH DECREASED TEMP TO 98F. NO ACUTE RESPIRATORY DISTRESS NOTED DURING MY SHIFT. TRACH/VENT SETTINGS TOLERATED WELL. SUCTIONED NEEDED AND REPOSITIONED Q2H. GT INTACT AND PATENT/ CLAMPED. LEFT UPPER ARM IV PICC LINE INTACT WITH ONGOING IVF NS @ 150 ML/HR. BEASLEY CATH DRAINED WELL ON GRAVITY. KEPT PT CLEAN AND DRY. WILL ENDORSE PATIENT CARE TO AM RN FOR SOLA.
--- NOTE | 2019-03-31 08:23 | NUR ---
received pt from grain operations manager, obtunded, ST, on the vent, lungs partially congested, no edema, J tube clamped, f/c good output, rectal tube- diarrhea, v/s stable, no pain, pt turned and repositioned.
[2019-03-31] MEDS: LINEZOLID RTU BAG 600 MG in PREMIX 1 EA IV SCH (09:01)
[2019-03-31] MEDS: PANTOPRAZOLE 40 MG VIAL IV SCH (09:01)
[2019-03-31] MEDS: CLOTRIMAZOLE 1% 15 GM TUBE TP SCH ×2 (09:01→17:01)
[2019-03-31] MEDS: ENOXAPARIN SODIUM 40 MG/0.4 ML DISP.SYRIN SQ SCH (09:02)
[2019-03-31] MEDS: POTASSIUM CL. PREMIX PERIPHER. 50 ML IV SCH ×5 (10:24→15:30)
[2019-03-31] MEDS ORDERED: IV D5W 1,000 ML IV PRN (10:43)
--- NOTE | 2019-03-31 12:00 | NUR ---
pt transferred to [facility], v/s stable, no pain, ACLS followed.
--- NOTE | 2019-03-31 12:39 | NUR ---
ced rn note received patient from [facility] , obtunded on tele monitor sr 107 , with g tube in place ,will start g tube feeding as ordered ,keep hob elevated all time,with trach to vent setting as ordered , ambu abg at hob , with rectal tube in place with liquid diet noted , on ivf as ordered , lt upper arm picc line in place , bed in lowest and locked position , call light within reach, will monitor
[2019-03-31] MEDS: GLUCERNA 1.2 1,000 ML BOTTLE GT PRN (13:02)
--- NOTE | 2019-03-31 15:56 | NUR ---
[facility] RN NOTES ROUNDS MADE, FAMILY MEMBER ON BEDSIDE, NEEDS ATTENDED, REPOSITIONED. CONTINUE TUBE FEEDING , NO RESIDUAL NOTED, KEPT CLEAN AND DRY, CALL LIGHT WITHIN REACH.
--- NOTE | 2019-03-31 18:39 | NUR ---
[facility] RN NOTES PATIENT REMAIN IN STABLE CONDITION, CONTINUE ON THE VENT AND GTUBE FEEDING TOLERATING WELL. F/C IN PLACE. RECTAL TUBE IN PLACE , FLUSHED WELL. ON ATB AND IV FLUIDS VIA PICC LINE. BED LOCK ON LOW POSITION. WILL CONTINUE TO MONITOR
--- NOTE | 2019-03-31 19:25 | NUR ---
[facility]/RN NOTES PATIENT IN BED, OBTUNDED, TRACH TO VENT WITH PRESCRIBED SETTINGS, TRACH INTACT, PATENT IN MIDLINE, BREATHING EVEN AND UNLABORED. NO SOB NOTED, NO S/S OF PAIN NOTED, G-TUBE IN PLACE, PATENT, CONNECTED TO FEEDING ORDERED, HOB ELEVATED, BEASLEY IN PLACE, PATENT DRAINING WELL WITH CLEAR YELLOW URINE, RECTAL TUBE IN PLACE, DRAINING WELL. PICC LINE PATENT RUNNING WITH FLUIDS AND ATB ORDERED. SAFETY MAINTAINED, BED AT THE LOWEST LOCKED POSITION, PATIENT ON TELE MONITORING SINUS TACHY. KEPT CLEAN AND DRY. WILL CONTINUE TO MONITOR PER PLAN OF CARE.
[2019-04-01] VITALS: BP 117/58
[2019-04-01] MEDS: MEROPENEM 1 G in IV NS 0.9% 100 ML IV SCH ×3 (02:27→17:01)
[2019-04-01 04:00] VITALS: BP 105/68
--- NOTE | 2019-04-01 05:01 | NUR ---
patient noted with temperature of 100.6, cooling measures initiated. PRN Tylenol given, will continue to monitor, in no acute distress, breathing even and unlabored on prescribed vent settings.
[2019-04-01] MEDS: ACETAMINOPHEN 325 MG TABLET PO PRN ×2 (05:05→11:13)
--- NOTE | 2019-04-01 05:52 | NUR ---
PATIENT TEMPERATURE DROPPED TO 99.0. WILL CONTINUE TO MONITOR
[2019-04-01 06:43] LABS: BASOPHILS % (AUTO) 0.3 % (0.0-2.0); EOSINOPHILS % (AUTO) 1.4 % (0.0-6.0); HEMATOCRIT 24 % (39-51); HEMOGLOBIN 7.7 g/dL (13.5-17.5); LYMPHOCYTES # (AUTO) 1.1 /CMM (0.8-4.8); LYMPHOCYTES % (AUTO) 7.8 % (20.0-44.0); MEAN CORPUSCULAR HGB CONC 32 g/dl (31.0-36.0); MEAN CORPUSCULAR VOLUME 88 fL (80-96); MONOCYTES # (AUTO) 0.9 /CMM (0.1-1.30); MONOCYTES % (AUTO) 6.5 % (2.0-12.0); NEUTROPHILS # (AUTO) 12.2 /CMM (1.8-8.9); PLATELET COUNT (AUTO) 291 /CMM (150-450); RED BLOOD CELL COUNT(AUTO) 2.72 MIL/uL (4.5-6.0); WHITE BLOOD COUNT (AUTO) 14.5 K/uL (4.3-11.0)
--- NOTE | 2019-04-01 06:45 | NUR ---
[facility]/RN NOTES PATIENT REMAINED IN BED, OBTUNDED, TRACH TO VENT WITH PRESCRIBED SETTINGS, TRACH INTACT, PATENT IN MIDLINE, BREATHING EVEN AND UNLABORED. NO SOB NOTED, NO S/S OF PAIN NOTED, G-TUBE IN PLACE, PATENT, CONNECTED TO FEEDING ORDERED, HOB ELEVATED, BEASLEY IN PLACE, PATENT DRAINING WELL WITH CLEAR YELLOW URINE, OUTPUT 1050 IN THIS SHIFT, RECTAL TUBE IN PLACE, DRAINING WELL 60CC IN THIS SHIFT. PICC LINE PATENT. SAFETY MAINTAINED, BED AT THE LOWEST LOCKED POSITION, PATIENT ON TELE MONITORING SINUS TACHY. ALL DUE MEDS GIVEN ORDERED, TREATMENTS RENDERED, TOLERATED WELL. KEPT CLEAN AND DRY. WILL ENDORSE TO AM SHIFT NURSE FOR SOLA.
[2019-04-01 07:11] LABS: CALCIUM, SERUM 8.4 mg/dL (8.5-10.1); CREATININE 0.8 mg/dL (0.6-1.3); POTASSIUM 3.3 mmol/L (3.5-5.1)
--- NOTE | 2019-04-01 07:30 | NUR ---
[facility]/RN NOTES PT IN BED, OBTUNEDED, WITH PORTEX 7 TO MECHANICAL VENT, SETTING ORDERED TOLERATING WELL. SATTING 100%. BREATHING EVEN AND UNLABORED. NO SOB NOTED, NO S/S OF PAIN NOTED, ST ON MONITOR HR 119. OLIVER PICC LINE FLUSHES WELL, CDI DRESSING. SITE CLEAR. G-TUBE IN PLACE, PATENT, CONNECTED TO FEEDING ORDERED, HOB ELEVATED, BEASLEY IN PLACE, PATENT DRAINING WELL WITH CLEAR YELLOW URINE, OUTPUT, RECTAL TUBE IN PLACE, DRAINING WELL, SEE NURSING FLOWSHEET FOR SKIN ISSUES. WILL PERFORM PRESCRIBED WOUND CARE IN A WHILE. SAFETY MAINTAINED, BED AT THE LOWEST LOCKED POSITION, KEPT CLEAN AND DRY. WILL CONT TO MONITOR.
[2019-04-01 08:00] VITALS: BP 104/59
[2019-04-01] MEDS: PANTOPRAZOLE 40 MG VIAL IV SCH (09:04)
[2019-04-01] MEDS: CLOTRIMAZOLE 1% 15 GM TUBE TP SCH ×2 (09:05→16:44)
[2019-04-01] MEDS: ENOXAPARIN SODIUM 40 MG/0.4 ML DISP.SYRIN SQ SCH (09:11)
[2019-04-01] MEDS ORDERED: Potassium Chloride 40 MEQ in IV D5W 1,000 ML IV PRN (09:20)
--- NOTE | 2019-04-01 09:30 | NUR ---
RN NOTES DUE MEDS GIVEN
[2019-04-01 12:00] VITALS: BP 100/62
--- NOTE | 2019-04-01 15:21 | NUR ---
RN NOTES REPORT GIVEN TO TYSON FOR SOLA
[2019-04-01 16:00] VITALS: BP_SYST 112; BP_SYST 93; BP_DIAS 62; BP_DIAS 66
[2019-04-01] MEDS: Potassium Chloride 40 MEQ in IV D5W 1,000 ML IV PRN (19:00)
--- NOTE | 2019-04-01 19:14 | NUR ---
[facility]/RN CLOSING NOTES PATIENT CONTINUES TO REMAIN IN STABLE CONDITION THROUGHOUT THE SHIFT. PROVIDED COMFORT AND SAFETY. OLIVER PICC LINE FLUSHES WELL, CDI DRESSING. SITE CLEAR. G-TUBE IN PLACE, PATENT, CONNECTED TO FEEDING ORDERED, HOB ELEVATED, BEASLEY IN PLACE, PATENT DRAINING WELL WITH CLEAR YELLOW URINE, OUTPUT, RECTAL TUBE IN PLACE, DRAINING WELL. ALL NEEDS ANTICIPATED. CALL LIGHT WITHIN REACHED. BED LOCKED AND IN LOWEST POSITION. SAFETY MAINTAINED. WILL CONTINUE TO MONITOR. ENDORSED TO PM NURSE FOR SOLA.
[2019-04-01 20:00] VITALS: BP 99/64
[2019-04-02] VITALS: BP 110/73
[2019-04-02] MEDS: MEROPENEM 1 G in IV NS 0.9% 100 ML IV SCH ×3 (02:07→17:37)
[2019-04-02 04:00] VITALS: BP 99/68
[2019-04-02] MEDS: Potassium Chloride 40 MEQ in IV D5W 1,000 ML IV PRN ×3 (04:43→22:36)
--- NOTE | 2019-04-02 05:50 | NUR ---
RN NOTES PATIENT IN BED RESSTING COMFORTABLY WITH NO DISTRESS NOTED. BREATHING EVEN AND UNLABORED. VENT SETTING WELL TOLERATED. NO PHYSICAL MANIFESTATION OF PAIN OR DISCOMFORT. OBTUNDED. VITAL SIGNS WNL. KEPT CLEAN AND DRY. WILL ENDORSE TO NEXT SHIFT FOR CONTINUITY OF CARE
[2019-04-02] MEDS: GLUCERNA 1.2 1,000 ML BOTTLE GT PRN ×2 (06:16→22:38)
[2019-04-02 07:07] LABS: BASOPHILS % (AUTO) 0.4 % (0.0-2.0); EOSINOPHILS % (AUTO) 2.2 % (0.0-6.0); HEMATOCRIT 28 % (39-51); HEMOGLOBIN 8.9 g/dL (13.5-17.5); LYMPHOCYTES % (AUTO) 9.4 % (20.0-44.0); MEAN CORPUSCULAR HGB CONC 32 g/dl (31.0-36.0); MEAN CORPUSCULAR VOLUME 89 fL (80-96); MONOCYTES # (AUTO) 0.8 /CMM (0.1-1.30); MONOCYTES % (AUTO) 8.2 % (2.0-12.0); NEUTROPHILS # (AUTO) 8.3 /CMM (1.8-8.9); NEUTROPHILS % (AUTO) 79.8 % (43.0-81.0); PLATELET COUNT (AUTO) 310 /CMM (150-450); RED BLOOD CELL COUNT(AUTO) 3.14 MIL/uL (4.5-6.0); WHITE BLOOD COUNT (AUTO) 10.4 K/uL (4.3-11.0)
[2019-04-02 07:48] LABS: CREATININE 0.6 mg/dL (0.6-1.3); POTASSIUM 4.2 mmol/L (3.5-5.1)
[2019-04-02 08:00] VITALS: BP 108/73
[2019-04-02] MEDS: PANTOPRAZOLE 40 MG VIAL IV SCH (10:00)
[2019-04-02] MEDS: ENOXAPARIN SODIUM 40 MG/0.4 ML DISP.SYRIN SQ SCH (10:01)
[2019-04-02 10:13] LABS: ABG BASE EXCESS 3.8 mmol/L; ABG PCO2 42.1 mmHg (35.0-45.0); ABG PH 7.445 (7.350-7.450); AaDO2 104.4 mmHg; COHb 0.3 % (0.5-1.5); MetHb 0.4 % (0.0-1.5); O2Hb 89.4 % (94.0-97.0); SITE, ABG Right Radial; VENT MODE, BG CPAP 5 / PS 15
[2019-04-02] MEDS ORDERED: MAGNESIUM HYDROXIDE 30 ML UDC GT PRN (11:30)
[2019-04-02] MEDS ORDERED: BISACODYL SUPP (10 MG) 10 MG/SUPP.RECT SUPP.RECT RC PRN (11:30)
[2019-04-02] MEDS ORDERED: IPRATROPIUM NEB FS 0.5 MG/2.5 ML AMPUL.NEB IH PRN (11:30)
--- NOTE | 2019-04-02 11:31 | NUR ---
FIO2 INCREASED FROM 30% TO 35% DUE TO 92% SPO2 Addendum: 04/02/19 at 1131 by ALEXIS CHONG RT Amended: Links added.
[2019-04-02 12:00] VITALS: BP 118/76
[2019-04-02] MEDS ORDERED: POLYVINYL ALCOHOL 15 ML BOTTLE OP PRN (12:00)
[2019-04-02] MEDS: PROSOURCE / PROSTAT (PYXIS) 30 ML UDC GT SCH ×2 (12:40→20:57)
[2019-04-02] MEDS: CHLORHEXIDINE GLUCONATE 15 ML UDC MM SCH ×2 (12:40→20:57)
[2019-04-02] MEDS: LEVETIRACETAM SOL (5 ML) 100 MG/ML UDC GT SCH ×2 (12:40→20:57)
[2019-04-02] MEDS: CLOTRIMAZOLE 1% 15 GM TUBE TP SCH ×2 (12:41→17:37)
[2019-04-02] MEDS: HYDROCODONE/APAP 5/325MG 1 EACH TABLET PO PRN (12:42)
[2019-04-02] MEDS ORDERED: METOPROLOL TARTRATE INJ 5 MG/5 ML AMPUL IVP PRN (13:00)
[2019-04-02] MEDS ORDERED: DEXTROSE 50%-WATER 50 ML DISP.SYRIN IV PRN ×2 (13:00)
[2019-04-02] MEDS ORDERED: INSULIN REGULAR, HUMAN 100 UNIT/ML 3 ML VIAL SQ PRN (13:00)
[2019-04-02] MEDS: BLOOD SUGAR DIAGNOSTIC 1 EACH STRIP IN SCH ×2 (13:01→17:37)
[2019-04-02] MEDS: IPRATROPIUM NEB FS 0.5 MG/2.5 ML AMPUL.NEB IH SCH ×2 (13:30→20:15)
[2019-04-02] MEDS: DIGOXIN 0.125 MG TABLET PO SCH (14:19)
[2019-04-02] MEDS: ACETAMINOPHEN 325 MG TABLET PO PRN (15:15)
[2019-04-02 16:00] VITALS: BP 97/69
[2019-04-02] MEDS ORDERED: Medication Not On Formulary EA (Cran/Vitc/Mannose/Inulin/Brom (Uti-Stat Liquid) 30 ML) GT SCH (17:00)
[2019-04-02] MEDS: INSULIN REGULAR, HUMAN 100 UNIT/ML 3 ML VIAL SQ PRN (17:42)
[2019-04-02] MEDS ORDERED: BLOOD SUGAR DIAGNOSTIC 1 EACH STRIP IN SCH (18:00)
--- NOTE | 2019-04-02 19:16 | NUR ---
[facility] RN OPENING NOTES RECEIVED PATIENT IN BED, OBTUNDED. IN NO APPARENT DISTRESS NOTED. ON TELE MONITOR ST WITH HR 100'S. ON MECHANICAL VENT TRACH SETTINGS: PORTEX 7, AC 12, TV 500, FIO2 35%, PEEP OF 5. TOLERATING WELL, SATURATING 100% AT THE MOMENT. BREATHING EVEN AND UNLABORED. NO SOB NOTED, NO S/S OF PAIN NOTED. IV SITE OLIVER PICC LINE FLUSHING AND PATENT, SITE C/D/I INTACT. G-TUBE IN PLACE, PATENT, CONNECTED TO FEEDING ORDERED, HOB ELEVATED. BEASLEY IN PLACE, PATENT DRAINING WELL WITH CLEAR YELLOW URINE. RECTAL TUBE IN PLACE, NO DRAIN NOTED AT THE MOMENT. SAFETY MEASURES MAINTAINED; BED LOCKED POSITION AND IN LOW POSITION, SIDE RAILS UP X2, CALL LIGHT WITHIN REACH. WILL CONT TO MONITOR PT CLOSELY.
[2019-04-02 20:00] VITALS: BP 100/68
[2019-04-02] MEDS: FAMOTIDINE (20 MG) 20 MG TABLET PO SCH (20:57)
[2019-04-02] MEDS ORDERED: INSULN 70/30 ASP+PRT/ASP MIX 100 UNIT/ML CARTRIDGE SQ SCH (21:00)
[2019-04-02] MEDS: SENNOSIDES 8.6 MG TABLET GT SCH (21:02)
[2019-04-02] MEDS: INSULIN NPH/REG 70/30 MIX INJ 100 UNIT/ML CARTRIDGE SQ SCH (21:13)
[2019-04-03] VITALS: BP 96/62
[2019-04-03] MEDS: BLOOD SUGAR DIAGNOSTIC 1 EACH STRIP IN SCH ×5 (00:33→23:33)
[2019-04-03] MEDS: INSULIN REGULAR, HUMAN 100 UNIT/ML 3 ML VIAL SQ PRN ×5 (00:37→23:34)
[2019-04-03] MEDS: IPRATROPIUM NEB FS 0.5 MG/2.5 ML AMPUL.NEB IH SCH ×4 (00:39→21:28)
[2019-04-03] MEDS: MEROPENEM 1 G in IV NS 0.9% 100 ML IV SCH ×3 (02:44→17:38)
[2019-04-03 04:00] VITALS: BP 98/62
[2019-04-03] MEDS: PROSOURCE / PROSTAT (PYXIS) 30 ML UDC GT SCH ×3 (05:46→20:54)
[2019-04-03] MEDS: INSULIN NPH/REG 70/30 MIX INJ 100 UNIT/ML CARTRIDGE SQ SCH ×3 (05:48→21:02)
--- NOTE | 2019-04-03 07:14 | NUR ---
[facility] RN CLOSING NOTES PATIENT RESTING IN BED, OBTUNDED. NO ACUTE CHANGES THROUGHOUT SHIFT. MECHANICAL VENT TRACH SETTINGS ORDERED, TOLERATING WELL. PT AFEBRILE. REPOSITIONED Q2H. PT KEPT CLEAN AND DRY. WOUND TX RENDERED ORDERED. SAFETY MEASURES MAINTAINED. ALL MD ORDERS ATTENDED. ENDORSED TO AM RN FOR SOLA.
[2019-04-03 08:00] VITALS: BP 98/65
--- NOTE | 2019-04-03 08:00 | NUR ---
[facility]/RN AM SHIFT INITIAL NOTES RECEIVED PT ASLEEP IN BED, PT OBTUNDED, NO GRIMACING OR ACUTE CHANGE OF CONDITION NOTED. ON VENT, C-PAP MODE (PS 15, FIO2 35% & PEEP 5), SATURATING @ 99%, RESPIRATIONS EVEN & UNLABORED, LUNG SOUNDS CLEAR, SUCTIONED FOR AIRWAY CLEARANCE. ON TELE WITH SINUS TACHY, HR 118, PT NOTED WITH ELEVATED TEMP 100.5 VIA AXILLARY. PICC LINE WITH ON GOING INFUSION OF KCL, 40MEQ IN D5W @ 125CC/HR. GT FEEDING ON @ 65CC/HR, NO GASTRIC RESIDUAL NOTED, FLUSHED, PATENT. BEASLEY CATHETER INTACT WITH YELLOW URINE OUTPUT. RECTAL RUBE INTACT WITH SOFT BROWN FECAL OUTPUT. PT IS COMFORTABLE, SCHEDULED AM MEDS TO BE GIVEN. CL WITHIN REACHED, SAFETY MAINTAINED AND ISOLATION OBSERVED. ON GOING MONITORING.
[2019-04-03] MEDS: FOLIC ACID 1 MG TABLET GT SCH (08:36)
[2019-04-03] MEDS: VITAMIN B COMP W-C 1 TAB TABLET PO SCH (08:36)
[2019-04-03] MEDS: FERROUS SULFATE (325 MG) 325 MG/TAB TABLET PO SCH (08:36)
[2019-04-03] MEDS: FAMOTIDINE (20 MG) 20 MG TABLET PO SCH ×2 (08:36→20:53)
[2019-04-03] MEDS: ENOXAPARIN SODIUM 40 MG/0.4 ML DISP.SYRIN SQ SCH (08:36)
[2019-04-03] MEDS: CHLORHEXIDINE GLUCONATE 15 ML UDC MM SCH ×2 (08:36→20:53)
[2019-04-03] MEDS: DOCUSATE SODIUM LIQ 100 MG/10 ML UDC GT SCH (08:36)
[2019-04-03] MEDS: MULTIVIT W/MINERALS 1 TAB TABLET PO SCH (08:36)
[2019-04-03] MEDS: LEVETIRACETAM SOL (5 ML) 100 MG/ML UDC GT SCH ×2 (08:36→20:53)
[2019-04-03] MEDS: ASCORBIC ACID 500 MG TABLET GT SCH (08:36)
[2019-04-03] MEDS: CLOTRIMAZOLE 1% 15 GM TUBE TP SCH ×2 (08:37→17:36)
[2019-04-03] MEDS: PANTOPRAZOLE 40 MG VIAL IV SCH (08:40)
[2019-04-03] MEDS ORDERED: Medication Not On Formulary EA (Arginine/Glutamine/Calcium Hmb (Juven Packet) 1 EACH) PO SCH (09:00)
[2019-04-03] MEDS: Potassium Chloride 40 MEQ in IV D5W 1,000 ML IV PRN ×2 (10:52→20:54)
[2019-04-03] MEDS: METOPROLOL TARTRATE 50 MG TABLET PO SCH ×2 (11:30→20:53)
[2019-04-03 12:00] VITALS: BP 98/64
[2019-04-03] MEDS: DIGOXIN 0.125 MG TABLET PO SCH (13:28)
[2019-04-03 16:00] VITALS: BP 92/62
[2019-04-03] MEDS: GLUCERNA 1.2 1,000 ML BOTTLE GT PRN (17:44)
--- NOTE | 2019-04-03 18:16 | NUR ---
RT RECD PT TRACH'D INTACT AND SECURED ON MECH VENT FREEMAN ORDERED SETTINGS ALARMS ON AND AUDIBLE BAG AND MASK AT HOB. SEE NEW WEANING ORDERS FOR [place] FOR AM SHIFT
--- NOTE | 2019-04-03 19:30 | NUR ---
TELE1/RN AM SHIFT END NOTES ALL NEEDS MET. NO ACUTE CHANGE OF CONDITION NOTED DURING THE SHIFT. PT ENDORSED TO PM NURSE TO CONTINUE CARE. CL WITHIN REACHED, SAFETY MAINTAINED AND ISOLATION OBSERVED.
[2019-04-03 20:00] VITALS: BP 120/66
[2019-04-03] MEDS: ACETAMINOPHEN 325 MG TABLET PO PRN (20:53)
--- NOTE | 2019-04-03 21:00 | NUR ---
DUPLICATING MACHINE OPERATOR NOTE: RECEIVED PT ON BED OBTUNDED WITH NO APPARENT DISTRESS NOTED. NO FACIAL GRIMACING OR ANY SIGNS OF PAIN NOTED. ON [facility] VENT, CPAP MODE, ABLE TO TOLERATE WELL. SATURATING WELL. SINUS TACHY ON TELE MONITOR HR 93BPM. LEFT UPPER ARM PICC LINE INTACT AND PATENT, IVF INFUSING WELL. FLEXISEAL AND BEASLEY CATH INTACT AND DRAINING WELL. KEPT CLEAN, DRY AND COMFORTABLE. SAFETY AND FALL PRECAUTIONS OBSERVED AND MAINTAINED. WILL CONTINUE TO MONITOR PT. Addendum: 04/04/19 at 0207 by RIGOBERTO PEREZ RN SINUS TACHY HR 123 BPM
[2019-04-03] MEDS: SENNOSIDES 8.6 MG TABLET GT SCH (21:04)
[2019-04-04] VITALS: BP 108/67
[2019-04-04] MEDS: MEROPENEM 1 G in IV NS 0.9% 100 ML IV SCH ×3 (01:18→17:11)
[2019-04-04] MEDS: IPRATROPIUM NEB FS 0.5 MG/2.5 ML AMPUL.NEB IH SCH ×4 (01:47→19:11)
--- NOTE | 2019-04-04 03:35 | NUR ---
Pt rec'd trached on [facility] vent on CPAP mode. No resp distress or SOB noted. Trach is patent and secured. Sx'd for thick mod amt of yellow secretions. alarms are set and audible. Vent plugged into red outlet. Ambu bag bedside. Will continue tominitor closely. Addendum: 04/04/19 at 0337 by HAZEL EMERY RT Amended: Links added.
[2019-04-04 04:00] VITALS: BP 120/68
[2019-04-04] MEDS: BLOOD SUGAR DIAGNOSTIC 1 EACH STRIP IN SCH ×3 (05:13→17:17)
[2019-04-04] MEDS: INSULIN NPH/REG 70/30 MIX INJ 100 UNIT/ML CARTRIDGE SQ SCH ×3 (05:14→22:33)
[2019-04-04] MEDS: PROSOURCE / PROSTAT (PYXIS) 30 ML UDC GT SCH ×3 (05:14→22:19)
[2019-04-04] MEDS: INSULIN REGULAR, HUMAN 100 UNIT/ML 3 ML VIAL SQ PRN ×3 (05:15→17:19)
[2019-04-04 06:24] LABS: BASOPHILS # (AUTO) 0.1 /CMM (0.0-0.2); BASOPHILS % (AUTO) 0.6 % (0.0-2.0); EOSINOPHILS % (AUTO) 4.3 % (0.0-6.0); HEMATOCRIT 27 % (39-51); HEMOGLOBIN 8.7 g/dL (13.5-17.5); LYMPHOCYTES # (AUTO) 2.2 /CMM (0.8-4.8); LYMPHOCYTES % (AUTO) 19.6 % (20.0-44.0); MEAN CORPUSCULAR HGB CONC 32 g/dl (31.0-36.0); MEAN CORPUSCULAR VOLUME 87 fL (80-96); MONOCYTES % (AUTO) 8.8 % (2.0-12.0); NEUTROPHILS # (AUTO) 7.5 /CMM (1.8-8.9); NEUTROPHILS % (AUTO) 66.7 % (43.0-81.0); PLATELET COUNT (AUTO) 367 /CMM (150-450); RED BLOOD CELL COUNT(AUTO) 3.13 MIL/uL (4.5-6.0); WHITE BLOOD COUNT (AUTO) 11.2 K/uL (4.3-11.0)
[2019-04-04 06:49] LABS: CREATININE 0.8 mg/dL (0.6-1.3); POTASSIUM 4.1 mmol/L (3.5-5.1)
--- NOTE | 2019-04-04 07:17 | NUR ---
BOARD MIXER TENDER NOTE: NO CHANGES NOTED THROUGHOUT THE SHIFT. NO APPARENT DISTRESS NOTED. NO FACIAL GRIMACING OR ANY SIGNS OF PAIN NOTED. ON [facility] VENT, SETTINGS ORDERED. ON TELE MONITOR SINUS TACHY HR 123 BPM. GT INTACT AND PATENT, ABLE TO TOLERATE FEEDING WELL. LEFT UPPER ARM PICC LINE INTACT AND PATENT, CALLED PHARMACY REGARDING NEW BAG OF IVF KCL 40 MEQS IN IV D5W, PER PHARMACY THEY'RE WAITING FOR THE POTASSIUM LEVEL FOR TODAY. ENDORSED TO DAY SHIFT RN TO FOLLOW UP.
--- NOTE | 2019-04-04 07:18 | NUR ---
RT Pt received trached on mechanical ventilation. Pt switched back to AC mode due to apnea. Vent is plugged into red outlet. No SOB or respiratory distress noted at this time. Addendum: 04/04/19 at 0804 by CHILANGO WONG RT Amended: Links added.
[2019-04-04 08:00] VITALS: BP 121/69
--- NOTE | 2019-04-04 08:00 | NUR ---
TELE1/RN AM SHIFT INITIAL NOTES PT RECEIVED ASLEEP, EASILY AROUSED, OBTUNDED, OPEN EYES, NO GRIMACING OR ACUTE RESPIRATORY DISTRESS NOTED. PT WAS ON C-PAP MODE BUT PLACED BACK ON AC MODE AT TURNED OF SHIFT. SATURATING @ 99, RESPIRATIONS EVEN AND UNLABORED, LUNG SOUNDS CLEAR, SUCTIONED FOR AIRWAY CLEARANCE. ON TELE WITH SINUS TACHY, HR 123. PICC LINE WITH ON GOING INFUSION OF KCL 40MEQ IN D5W @ 125CC/HR. GT FEEDING ON GOING @ 65CC/HR, NO GASTRIC RESIDUAL NOTED, FLUSHED, PATENT, BEASLEY CATHETER INTACT WITH YELLOW URINE OUTPUT. RECTAL TUBE INTACT WITH BROWN COLORED FECAL OUTPUT. PT IS COMFORTABLE, SCHEDULED AM MEDS TO BE GIVEN. CL WITHIN REACHED, SAFETY MAINTAINED AND ISOLATION OBSERVED. ON GOING MONITORING.
[2019-04-04] MEDS: CHLORHEXIDINE GLUCONATE 15 ML UDC MM SCH ×2 (09:13→22:17)
[2019-04-04] MEDS: LEVETIRACETAM SOL (5 ML) 100 MG/ML UDC GT SCH ×2 (09:13→22:16)
[2019-04-04] MEDS: DOCUSATE SODIUM LIQ 100 MG/10 ML UDC GT SCH (09:13)
[2019-04-04] MEDS: PANTOPRAZOLE 40 MG VIAL IV SCH (09:13)
[2019-04-04] MEDS: FERROUS SULFATE (325 MG) 325 MG/TAB TABLET PO SCH (09:14)
[2019-04-04] MEDS: FOLIC ACID 1 MG TABLET GT SCH (09:14)
[2019-04-04] MEDS: ACETAMINOPHEN 325 MG TABLET PO PRN (09:14)
[2019-04-04] MEDS: METOPROLOL TARTRATE 50 MG TABLET PO SCH ×2 (09:14→21:00)
[2019-04-04] MEDS: FAMOTIDINE (20 MG) 20 MG TABLET PO SCH ×2 (09:14→22:16)
[2019-04-04] MEDS: MULTIVIT W/MINERALS 1 TAB TABLET PO SCH (09:14)
[2019-04-04] MEDS: ASCORBIC ACID 500 MG TABLET GT SCH (09:14)
[2019-04-04] MEDS: VITAMIN B COMP W-C 1 TAB TABLET PO SCH (09:14)
[2019-04-04] MEDS: CLOTRIMAZOLE 1% 15 GM TUBE TP SCH ×2 (09:15→17:12)
[2019-04-04] MEDS: ENOXAPARIN SODIUM 40 MG/0.4 ML DISP.SYRIN SQ SCH (09:16)
[2019-04-04] MEDS: Potassium Chloride 40 MEQ in IV D5W 1,000 ML IV PRN ×2 (09:19→17:51)
--- NOTE | 2019-04-04 09:45 | NUR ---
RT Pt placed on cool aerosol per Dr. De La Fuente order/request. Dr. De La Fuente is aware of moments of apnea. No respiratory distress noted at this time. Addendum: 04/04/19 at 0959 by CHILANGO WONG RT Amended: Links added.
--- NOTE | 2019-04-04 09:45 | NUR ---
KYE/JASON WEANING - COOL AEROSOL PT PLACED ON COOL AEROSOL WITH 35% FIO2, 8L OF O2. MONITORING. Addendum: 04/04/19 at 1123 by JOIE WOODRUFF RN ADDENDUM: ABG RESULTS, PT TOLERATING ON COOL AEROSOL, WILL CONTINUE MONITORING. DR. OG BROWN.
[2019-04-04] MEDS: GLUCERNA 1.2 1,000 ML BOTTLE GT PRN (10:45)
--- NOTE | 2019-04-04 11:00 | NUR ---
TELE1/RN ROUNDS - DR. CARTER UPDATED PT'S CONDITION. PT SEEN & EXAMINED BY DR. CARTER. CONFIRMED WITH MD TO CONTINUE IV INFUSION OF KCL 40MEQ IN DW5 @ 125CC/HR. NO NEW ORDER RECEIVED.
[2019-04-04 11:07] LABS: ABG BASE EXCESS 4.9 mmol/L; ABG PCO2 47.2 mmHg (35.0-45.0); ABG PH 7.421 (7.350-7.450); ABG PO2 90.3 mmHg (75.0-100.0); AaDO2 104.4 mmHg; COHb 0.2 % (0.5-1.5); MetHb 0.7 % (0.0-1.5); O2Hb 95.1 % (94.0-97.0); SITE, ABG Right Radial; VENT MODE, BG COOL AEROSOL 35%
--- NOTE | 2019-04-04 11:38 | NUR ---
RT Pt is tolerating cool aerosol, no signs of SOB or respiratory distress noted. Addendum: 04/04/19 at 1416 by CHILANGO WONG RT Amended: Links added.
[2019-04-04 12:00] VITALS: BP 116/60
[2019-04-04] MEDS: DIGOXIN 0.125 MG TABLET PO SCH (12:22)
[2019-04-04 16:00] VITALS: BP 128/67
--- NOTE | 2019-04-04 17:00 | NUR ---
TELE1/RN AFTERNOON ROUNDS PM CARE PROVIDED, PT TOLERATING COOL AEROSOL. NO CHANGE OF CONDITION. ON GOING MONITORING.
--- NOTE | 2019-04-04 19:30 | NUR ---
TELE1/RN AM SHIFT END NOTES ALL NEEDS MET. NO ACUTE CHANGE OF CONDITION NOTED DURING THE SHIFT, TOLERATING COOL AEROSOL. PT ENDORSED TO PM NURSE TO CONTINUE CARE. CL WITHIN REACHED, SAFETY MAINTAINED AND ISOLATION OBSERVED.
[2019-04-04 20:00] VITALS: BP 91/58
[2019-04-04 20:13] LABS: APPEARANCE,URINE CLEAR (CLEAR); BILIRUBIN,URINE NEGATIVE (NEGATIVE); BLOOD, URINE MODERATE Ery/uL (NEGATIVE); COLOR,URINE YELLOW (YELLOW); KETONES,URINE NEGATIVE (NEGATIVE); LEUKOCYTE ESTERASE ,URINE NEGATIVE (NEGATIVE); NITRITE, URINE NEGATIVE (NEGATIVE); PH,URINE 7.5 (5.0-8.0); PROTEIN,URINE NEGATIVE (NEGATIVE); UGLUCOSE NEGATIVE (NEGATIVE); UROBILINOGEN,URINE 0.2 EU/dL (0.2)
[2019-04-04 20:24] LABS: BACTERIA,URINE Rare /HPF (None Seen); RBC,URINE 21-50 /HPF (0-2); SQUAMOUS EPITHELIAL CELL,UR Few /HPF (None Seen); WBC,URINE 0-2 /HPF (0-3)
[2019-04-04] MEDS: SENNOSIDES 8.6 MG TABLET GT SCH (22:16)
--- NOTE | 2019-04-04 22:54 | NUR ---
LACQUER MAKER NOTE DEJA HELD BP 91/58 DOUBLE CHECKED BY ME.
[2019-04-05] VITALS (9 sets, daily range): BP systolic 97–124; BP diastolic 60–90
[2019-04-05] MEDS: BLOOD SUGAR DIAGNOSTIC 1 EACH STRIP IN SCH ×4 (00:25→18:24)
[2019-04-05] MEDS: INSULIN REGULAR, HUMAN 100 UNIT/ML 3 ML VIAL SQ PRN ×4 (00:28→18:31)
[2019-04-05] MEDS: MEROPENEM 1 G in IV NS 0.9% 100 ML IV SCH ×3 (01:41→18:24)
[2019-04-05] MEDS: Potassium Chloride 40 MEQ in IV D5W 1,000 ML IV PRN ×3 (02:02→21:41)
[2019-04-05] MEDS: IPRATROPIUM NEB FS 0.5 MG/2.5 ML AMPUL.NEB IH SCH ×4 (02:23→19:30)
[2019-04-05] MEDS: PROSOURCE / PROSTAT (PYXIS) 30 ML UDC GT SCH ×3 (04:17→21:34)
[2019-04-05] MEDS: ACETAMINOPHEN 325 MG TABLET PO PRN (04:18)
[2019-04-05] MEDS: GLUCERNA 1.2 1,000 ML BOTTLE GT PRN ×2 (04:45→21:41)
[2019-04-05] MEDS: INSULIN NPH/REG 70/30 MIX INJ 100 UNIT/ML CARTRIDGE SQ SCH ×3 (06:15→21:58)
[2019-04-05 07:13] LABS: BASOPHILS # (AUTO) 0.1 /CMM (0.0-0.2); BASOPHILS % (AUTO) 0.7 % (0.0-2.0); HEMATOCRIT 26 % (39-51); HEMOGLOBIN 8.6 g/dL (13.5-17.5); LYMPHOCYTES # (AUTO) 1.6 /CMM (0.8-4.8); LYMPHOCYTES % (AUTO) 12.8 % (20.0-44.0); MEAN CORPUSCULAR HGB CONC 33 g/dl (31.0-36.0); MEAN CORPUSCULAR VOLUME 86 fL (80-96); MONOCYTES # (AUTO) 0.9 /CMM (0.1-1.30); MONOCYTES % (AUTO) 7.1 % (2.0-12.0); NEUTROPHILS # (AUTO) 9.4 /CMM (1.8-8.9); NEUTROPHILS % (AUTO) 76.4 % (43.0-81.0); PLATELET COUNT (AUTO) 379 /CMM (150-450); RED BLOOD CELL COUNT(AUTO) 3.03 MIL/uL (4.5-6.0); WHITE BLOOD COUNT (AUTO) 12.3 K/uL (4.3-11.0)
--- NOTE | 2019-04-05 07:17 | NUR ---
BLOCK MECHANIC CLOSING NOTE PATIENT IN BED WITH NO SIGN OF ANY DISTRESS. TOLERATING 8L OF O2 WITH COOL AEROSOL. NO SIGNS OF ANY SOB. TEMPERATURE HAS DECREASED AFTER ADMINISTRATION OF TYLENOL. ALL SAFETY PRECAUTIONS HAVE BEEN APPLIED. ENDORSED PATIENT TO MORNING SHIFT NURSE.
[2019-04-05 07:23] LABS: CALCIUM, SERUM 8.6 mg/dL (8.5-10.1); CREATININE 0.8 mg/dL (0.6-1.3); MAGNESIUM 2.4 mg/dL (1.8-2.4); PHOSPHORUS 3.5 mg/dL (2.5-4.9); POTASSIUM 4.2 mmol/L (3.5-5.1)
--- NOTE | 2019-04-05 08:00 | NUR ---
RN NOTES PATIENT ON BED, IN STABLE CONDITION, OBTUNDED, ON THE VENT AND GTUBE FEEDING TOLERATING WELL. F/C IN PLACE. RECTAL TUBE IN PLACE , FLUSHED WELL. IV FLUIDS VIA PICC LINE. BED LOCK ON LOW POSITION. REPOSITIONED, KEPT CLEAN AND WILL CONTINUE TO MONITOR
[2019-04-05] MEDS: METOPROLOL TARTRATE 50 MG TABLET PO SCH ×2 (09:00→22:06)
[2019-04-05 09:31] LABS: BILIRUBIN,DIRECT 0.1 mg/dL (0.0-0.2); BILIRUBIN,TOTAL 0.4 mg/dL (0.2-1.0)
--- NOTE | 2019-04-05 09:37 | NUR ---
rn note spoke with YONI Bethea, reported lactic acid 2.2, no new orders at this time. pt afebrile.
[2019-04-05] MEDS: FERROUS SULFATE (325 MG) 325 MG/TAB TABLET PO SCH (11:04)
[2019-04-05] MEDS: LEVETIRACETAM SOL (5 ML) 100 MG/ML UDC GT SCH ×2 (11:05→21:33)
[2019-04-05] MEDS: MULTIVIT W/MINERALS 1 TAB TABLET PO SCH (11:05)
[2019-04-05] MEDS: ASCORBIC ACID 500 MG TABLET GT SCH (11:05)
[2019-04-05] MEDS: FOLIC ACID 1 MG TABLET GT SCH (11:05)
[2019-04-05] MEDS: DOCUSATE SODIUM LIQ 100 MG/10 ML UDC GT SCH (11:05)
[2019-04-05] MEDS: VITAMIN B COMP W-C 1 TAB TABLET PO SCH (11:05)
[2019-04-05] MEDS: CHLORHEXIDINE GLUCONATE 15 ML UDC MM SCH ×2 (11:05→21:33)
[2019-04-05] MEDS: PANTOPRAZOLE 40 MG VIAL IV SCH (11:05)
[2019-04-05] MEDS: FAMOTIDINE (20 MG) 20 MG TABLET PO SCH ×2 (11:05→21:33)
[2019-04-05] MEDS: ENOXAPARIN SODIUM 40 MG/0.4 ML DISP.SYRIN SQ SCH (11:07)
[2019-04-05] MEDS: CLOTRIMAZOLE 1% 15 GM TUBE TP SCH ×2 (11:12→17:00)
[2019-04-05] MEDS: DIGOXIN 0.125 MG TABLET PO SCH (13:21)
[2019-04-05] MEDS: HYDROCODONE/APAP 5/325MG 1 EACH TABLET PO PRN (15:39)
--- NOTE | 2019-04-05 20:00 | NUR ---
FLOUR TESTER NOTE PT IN BED OBTUNDED. ON T PIECE 8L O2 COOL AEROSOL 35 FIO2 O2 SAT 100%. NO DISTRESS OR DISCOMFORT NOTED. NO S/S OF PAIN NOTED. GTF GLUCERNA INFUSING AT 65 ML/HR, 0 ML RESIDUAL NOTED. KEPT HOB ELEVATED. ON TELE ST 120'S. FLEXI SEAL INTACT AND PATENT DRAINING LIQUIDY STOOL BROWNISH IN COLOR. F/C INTACT AND PATENT DRAINING YELLOWISH COLOR URINE. IVF D5W WITH 40 MEQ KCL INFUSING AT 125 ML/HR, NO S/S OF INFILTRATION NOTED. PICC LINE OLIVER INTACT AND PATENT. PT REMAIN IN ISOLATION FOR ESBL URINE. ISOLATION PRECAUTIONS TAKEN. REPOSITION HIM Q2H, KEPT HIM DRY AND CLEAN. ALL NEEDS ATTENDED. CONTINUE TO MONITOR HIM.
[2019-04-05] MEDS: SENNOSIDES 8.6 MG TABLET GT SCH (22:00)
[2019-04-06] VITALS (7 sets, daily range): BP systolic 92–140; BP diastolic 57–89
[2019-04-06] MEDS: BLOOD SUGAR DIAGNOSTIC 1 EACH STRIP IN SCH ×4 (00:38→17:21)
[2019-04-06] MEDS: INSULIN REGULAR, HUMAN 100 UNIT/ML 3 ML VIAL SQ PRN ×3 (00:39→12:24)
[2019-04-06] MEDS: IPRATROPIUM NEB FS 0.5 MG/2.5 ML AMPUL.NEB IH SCH ×4 (01:00→19:50)
[2019-04-06] MEDS: MEROPENEM 1 G in IV NS 0.9% 100 ML IV SCH ×3 (01:34→17:21)
[2019-04-06] MEDS: PROSOURCE / PROSTAT (PYXIS) 30 ML UDC GT SCH ×3 (05:14→21:10)
[2019-04-06] MEDS: Potassium Chloride 40 MEQ in IV D5W 1,000 ML IV PRN ×2 (05:29→19:22)
[2019-04-06] MEDS: INSULIN NPH/REG 70/30 MIX INJ 100 UNIT/ML CARTRIDGE SQ SCH ×2 (05:55→12:30)
[2019-04-06 06:40] LABS: BASOPHILS # (AUTO) 0.1 /CMM (0.0-0.2); BASOPHILS % (AUTO) 0.6 % (0.0-2.0); EOSINOPHILS % (AUTO) 3.8 % (0.0-6.0); HEMATOCRIT 27 % (39-51); HEMOGLOBIN 8.7 g/dL (13.5-17.5); LYMPHOCYTES # (AUTO) 2.4 /CMM (0.8-4.8); LYMPHOCYTES % (AUTO) 18.1 % (20.0-44.0); MEAN CORPUSCULAR HGB CONC 33 g/dl (31.0-36.0); MEAN CORPUSCULAR VOLUME 86 fL (80-96); MONOCYTES % (AUTO) 7.7 % (2.0-12.0); NEUTROPHILS # (AUTO) 9.1 /CMM (1.8-8.9); NEUTROPHILS % (AUTO) 69.8 % (43.0-81.0); PLATELET COUNT (AUTO) 391 /CMM (150-450); RED BLOOD CELL COUNT(AUTO) 3.11 MIL/uL (4.5-6.0); WHITE BLOOD COUNT (AUTO) 13.1 K/uL (4.3-11.0)
--- NOTE | 2019-04-06 06:40 | NUR ---
SHREDDING SPECIALIST NOTE PT IN BED OBTUNDED. REMAIN ON COOL AEROSOL TOLERATING WELL. O2 SAT 98%. NO DISTRESS OR DISCOMFORT NOTED. NO S/S OF PAIN NOTED. GTF INFUSING WELL, 0 ML RESIDUAL NOTED. KEPT HOB ELEVATED. IVF INFUSING WELL, NO S/S OF INFILTRATION NOTED. ON TELE ST HR 117 AT THIS TIME. REPOSITION HIM Q2H, KEPT HIM DRY AND CLEAN. FLEX SEAL INTACT AND PATENT DRAINING BROWNISH COLOR LIQUIDY STOOL. F/C INTACT AND PATENT DRAINING YELLOWISH COLOR URINE. SIDE RAILS UP X 2 AND CALL LIGHT WITHIN REACH. WILL ENDORSE TO DAY SHIFT NURSE FOR CONTINUE TO CARE.
[2019-04-06 06:50] LABS: CALCIUM, SERUM 8.5 mg/dL (8.5-10.1); CREATININE 0.7 mg/dL (0.6-1.3); MAGNESIUM 2.6 mg/dL (1.8-2.4); PHOSPHORUS 3.4 mg/dL (2.5-4.9); POTASSIUM 4.4 mmol/L (3.5-5.1)
[2019-04-06] MEDS: LEVETIRACETAM SOL (5 ML) 100 MG/ML UDC GT SCH ×2 (08:57→21:09)
[2019-04-06] MEDS: VITAMIN B COMP W-C 1 TAB TABLET PO SCH (08:57)
[2019-04-06] MEDS: CHLORHEXIDINE GLUCONATE 15 ML UDC MM SCH ×2 (08:57→21:09)
[2019-04-06] MEDS: DOCUSATE SODIUM LIQ 100 MG/10 ML UDC GT SCH (09:00)
[2019-04-06] MEDS: ASCORBIC ACID 500 MG TABLET GT SCH (09:07)
[2019-04-06] MEDS: PANTOPRAZOLE 40 MG VIAL IV SCH (09:08)
[2019-04-06] MEDS: FOLIC ACID 1 MG TABLET GT SCH (09:08)
[2019-04-06] MEDS: MULTIVIT W/MINERALS 1 TAB TABLET PO SCH (09:09)
[2019-04-06] MEDS: FERROUS SULFATE (325 MG) 325 MG/TAB TABLET PO SCH (09:09)
[2019-04-06] MEDS: FAMOTIDINE (20 MG) 20 MG TABLET PO SCH ×2 (09:09→21:09)
[2019-04-06] MEDS: METOPROLOL TARTRATE 50 MG TABLET PO SCH ×2 (09:10→21:00)
[2019-04-06] MEDS: ENOXAPARIN SODIUM 40 MG/0.4 ML DISP.SYRIN SQ SCH (09:12)
[2019-04-06] MEDS: CLOTRIMAZOLE 1% 15 GM TUBE TP SCH ×2 (09:14→17:41)
[2019-04-06] MEDS: DIGOXIN 0.125 MG TABLET PO SCH (12:32)
[2019-04-06] MEDS ORDERED: DEXTROSE 50%-WATER 50 ML DISP.SYRIN IV PRN (15:00)
[2019-04-06] MEDS ORDERED: IV NS 0.9% 500 ML IV ONE (15:00)
--- NOTE | 2019-04-06 15:00 | NUR ---
rn note during pt care and bed bath, pt's g-tube dislodged out of stoma, which was reinserted back, MARGARINE CHURN OPERATOR Neema contacted, and ordered KUB with Gastropraphin contrast, to check for placement. will order and follow up with results with md.
[2019-04-06] MEDS ORDERED: DIATR MEGLU/DIATRIZOATE SODIUM 30 ML BOTTLE (GASTROGRAPHIN) ONE (15:53)
--- NOTE | 2019-04-06 19:00 | NUR ---
RN note relayed results for kub to marguerite Royay to resume tube feeding. will follow through. insulin held at 1700, because was unsure about tube feeding and pt was npo at the time.
[2019-04-06] MEDS: GLUCERNA 1.2 1,000 ML BOTTLE GT PRN (19:22)
--- NOTE | 2019-04-06 20:17 | NUR ---
RT PT RECEIVED ON CA 8L. PT IS TRACHED, PORTEX 7. CA BOTTLE IS HALF FULL. SMALL, WHITE, THICK SECRETIONS SUCTIONED. PT IN NO APPARENT RESPIRATORY DISTRESS. AMBU BAG AT HEAD OF BED. WILL CONTINUE TO MONITOR. Addendum: 04/06/19 at 2020 by LIS SANDS RT Amended: Links added.
[2019-04-06] MEDS: SENNOSIDES 8.6 MG TABLET GT SCH (21:09)
[2019-04-06] MEDS: HYDROCODONE/APAP 5/325MG 1 EACH TABLET PO PRN (21:10)
[2019-04-07] VITALS (8 sets, daily range): BP systolic 87–125; BP diastolic 50–72
[2019-04-07] MEDS: BLOOD SUGAR DIAGNOSTIC 1 EACH STRIP IN SCH ×4 (00:26→17:14)
[2019-04-07] MEDS: Potassium Chloride 40 MEQ in IV D5W 1,000 ML IV PRN (00:27)
[2019-04-07] MEDS: INSULIN REGULAR, HUMAN 100 UNIT/ML 3 ML VIAL SQ PRN ×4 (00:32→17:10)
[2019-04-07] MEDS: MEROPENEM 1 G in IV NS 0.9% 100 ML IV SCH ×2 (01:31→09:40)
[2019-04-07] MEDS: HYDROCODONE/APAP 5/325MG 1 EACH TABLET PO PRN ×2 (01:32→05:50)
[2019-04-07] MEDS: IPRATROPIUM NEB FS 0.5 MG/2.5 ML AMPUL.NEB IH SCH ×4 (01:49→20:06)
[2019-04-07] MEDS: PROSOURCE / PROSTAT (PYXIS) 30 ML UDC GT SCH ×3 (05:47→21:21)
--- NOTE | 2019-04-07 07:50 | NUR ---
RN NOTE RECEIVED PATIENT IN BED WITH HOB ELEVATED, WITH TRACH ON COOL AEROSOL ON 8L, OBTUNDED, ON TELE MONITOR SINUS TACHY, FLEXISEAL IN PLACE AND FLUSHING WEL, GT PATENT IN PLACE AND FLUSHING WELL, CURRENTLY ON GLUCERNA RUNNING AT 65ML/HR. LUE PICC LINE WITH ONLY ONE PORT FLUSHING WELL. BEASLEY CATHETER IN PLACE WITH YELLOW CLEAR URINE, REPOSITIONED PATIENT AND KEPT CLEAN GLADYS DRY NO INDICATIONS OF PAIN AT THIS TIME, WILL CONTINUE TO MONITOR.
[2019-04-07] MEDS: METOPROLOL TARTRATE 50 MG TABLET PO SCH ×2 (09:00→21:00)
--- NOTE | 2019-04-07 09:01 | NUR ---
RN NOTE PATIENT NOTED WITH HYPOTENSION. BLOOD PRESURE CHECKED TWICE. CURRENTLY 86/60 HR 113. CURRENTLY ON IVF POTASSIUM CHOLIRIDE 40MQ IN D5W RUNNING AT 125ML/HR. WILL HOLD LOPRESSOR. PAGED DR. AVILES.
--- NOTE | 2019-04-07 09:15 | NUR ---
RN NOTE TRACI TRUONG NOTIFIED ABOUT HYPOTENSION. PT CURRENTLY NOT IN DISTRESS. MD STATES TO NOTIFY HOSPITALIST. WILL FOLLOW UP.
[2019-04-07] MEDS: FERROUS SULFATE (325 MG) 325 MG/TAB TABLET PO SCH (09:19)
[2019-04-07] MEDS: FAMOTIDINE (20 MG) 20 MG TABLET PO SCH ×2 (09:20→21:22)
[2019-04-07] MEDS: PANTOPRAZOLE 40 MG VIAL IV SCH (09:20)
[2019-04-07] MEDS: FOLIC ACID 1 MG TABLET GT SCH (09:20)
[2019-04-07] MEDS: DOCUSATE SODIUM LIQ 100 MG/10 ML UDC GT SCH (09:20)
[2019-04-07] MEDS: VITAMIN B COMP W-C 1 TAB TABLET PO SCH (09:20)
[2019-04-07] MEDS: ASCORBIC ACID 500 MG TABLET GT SCH (09:20)
[2019-04-07] MEDS: CHLORHEXIDINE GLUCONATE 15 ML UDC MM SCH ×2 (09:20→21:22)
[2019-04-07] MEDS: LEVETIRACETAM SOL (5 ML) 100 MG/ML UDC GT SCH ×2 (09:20→21:23)
[2019-04-07] MEDS: MULTIVIT W/MINERALS 1 TAB TABLET PO SCH (09:20)
[2019-04-07] MEDS: CLOTRIMAZOLE 1% 15 GM TUBE TP SCH ×2 (09:21→16:12)
[2019-04-07] MEDS: ENOXAPARIN SODIUM 40 MG/0.4 ML DISP.SYRIN SQ SCH (09:32)
--- NOTE | 2019-04-07 10:35 | NUR ---
RN NOTE PT WITH IMPROVED BLOOD PRESSURE NOTED. 98/62 HR 114. PT CURRENTLY NOT IN DISTRESS, WILL NOTIFY KAITLYN TRUONG,
--- NOTE | 2019-04-07 10:58 | NUR ---
RN NOTE DENEEN AND EXAMINED BY KAITLYN TRUONG. WITH ORDER TO HOLD TUBE FEEDINGS EXCEPT FOR MEDS AND FOR GT EVAL DUE TO LEAKING GT SITE. WILL NOTIFY RIGOBERTO TRUONG.
[2019-04-07 12:26] LABS: BASOPHILS # (AUTO) 0.1 /CMM (0.0-0.2); BASOPHILS % (AUTO) 0.5 % (0.0-2.0); EOSINOPHILS % (AUTO) 3.7 % (0.0-6.0); HEMATOCRIT 26 % (39-51); HEMOGLOBIN 8.5 g/dL (13.5-17.5); LYMPHOCYTES # (AUTO) 2.5 /CMM (0.8-4.8); LYMPHOCYTES % (AUTO) 20.5 % (20.0-44.0); MEAN CORPUSCULAR HGB CONC 33 g/dl (31.0-36.0); MEAN CORPUSCULAR VOLUME 87 fL (80-96); MONOCYTES # (AUTO) 1.1 /CMM (0.1-1.30); MONOCYTES % (AUTO) 9.1 % (2.0-12.0); NEUTROPHILS # (AUTO) 8.1 /CMM (1.8-8.9); NEUTROPHILS % (AUTO) 66.2 % (43.0-81.0); PLATELET COUNT (AUTO) 335 /CMM (150-450); RED BLOOD CELL COUNT(AUTO) 2.97 MIL/uL (4.5-6.0); WHITE BLOOD COUNT (AUTO) 12.2 K/uL (4.3-11.0)
--- NOTE | 2019-04-07 12:30 | NUR ---
MECHANICAL PLANNER NOTE DR CARRERA AT BESIDE SEEN G TUBE SITE OK TO RESTART G TUBE FEEDING AT 50 ML PER HOUR AND MONITOR FOR LEAKINGALSO ORDERED REGLAN VIA G TUBE, ORDER CARRIED OUT
[2019-04-07] MEDS: DIGOXIN 0.125 MG TABLET PO SCH (12:36)
[2019-04-07 12:49] LABS: CALCIUM, SERUM 8.1 mg/dL (8.5-10.1); CREATININE 0.7 mg/dL (0.6-1.3); POTASSIUM 4.6 mmol/L (3.5-5.1)
[2019-04-07] MEDS: IV D5/ 0.9% NACL 1,000 ML IV PRN ×2 (12:59→21:26)
--- NOTE | 2019-04-07 14:47 | NUR ---
telephone instrument supervisor note family at bedside ,all needs attended trach care done , not in distress
[2019-04-07] MEDS: METOCLOPRAMIDE HCL 10 MG TABLET GT SCH (17:09)
--- NOTE | 2019-04-07 18:28 | NUR ---
RN NOTE PT IN BED WITH HEAD OF BED ELEVATED, NO SIGNS OF DISTRESS, PT WITH TRACH AND CURRENTLY ON COOL AEROSOL @8L PER MINUTE, GT FEEDING CURRENTLY RUNNING AT 50ML/HR PER MD, PATENT AND FLUSHING WELL, REPOSITIONED, PT WITH IVF RUNNING AT 125ML/HR ON LUE PICC LINE WITH ONLY ONE PORT FLUSHING WELL.
[2019-04-07] MEDS: SENNOSIDES 8.6 MG TABLET GT SCH (21:22)
[2019-04-08] MEDS: BLOOD SUGAR DIAGNOSTIC 1 EACH STRIP IN SCH ×4 (00:32→17:59)
[2019-04-08] MEDS: METOCLOPRAMIDE HCL 10 MG TABLET GT SCH ×4 (00:33→17:59)
[2019-04-08] MEDS: INSULIN REGULAR, HUMAN 100 UNIT/ML 3 ML VIAL SQ PRN ×3 (00:39→18:09)
[2019-04-08] MEDS: IPRATROPIUM NEB FS 0.5 MG/2.5 ML AMPUL.NEB IH SCH ×4 (01:35→19:41)
[2019-04-08 04:00] VITALS: BP 109/60
[2019-04-08] MEDS: PROSOURCE / PROSTAT (PYXIS) 30 ML UDC GT SCH ×3 (05:44→21:20)
[2019-04-08] MEDS: HYDROCODONE/APAP 5/325MG 1 EACH TABLET PO PRN (05:45)
[2019-04-08] MEDS: IV D5/ 0.9% NACL 1,000 ML IV PRN ×2 (05:51→21:11)
[2019-04-08 06:28] LABS: BASOPHILS # (AUTO) 0.1 /CMM (0.0-0.2); BASOPHILS % (AUTO) 0.6 % (0.0-2.0); EOSINOPHILS % (AUTO) 3.5 % (0.0-6.0); HEMATOCRIT 23 % (39-51); HEMOGLOBIN 7.6 g/dL (13.5-17.5); LYMPHOCYTES # (AUTO) 1.8 /CMM (0.8-4.8); LYMPHOCYTES % (AUTO) 20.6 % (20.0-44.0); MEAN CORPUSCULAR HGB CONC 33 g/dl (31.0-36.0); MEAN CORPUSCULAR VOLUME 86 fL (80-96); MONOCYTES # (AUTO) 0.7 /CMM (0.1-1.30); MONOCYTES % (AUTO) 8.3 % (2.0-12.0); NEUTROPHILS # (AUTO) 5.8 /CMM (1.8-8.9); PLATELET COUNT (AUTO) 286 /CMM (150-450); RED BLOOD CELL COUNT(AUTO) 2.65 MIL/uL (4.5-6.0); WHITE BLOOD COUNT (AUTO) 8.6 K/uL (4.3-11.0)
[2019-04-08 06:45] LABS: CREATININE 0.6 mg/dL (0.6-1.3); MAGNESIUM 2.5 mg/dL (1.8-2.4); PHOSPHORUS 3.5 mg/dL (2.5-4.9); POTASSIUM 3.8 mmol/L (3.5-5.1)
--- NOTE | 2019-04-08 07:05 | NUR ---
MS RN OPENING NOTE: RECEIVED PATIENT IN BED AND OBTUNDED. CONTACT ISOLATION PRECAUTIONS IN PLACE, STAFF AWARE AND COMPLIANCE OBSERVED. WITH TRACH TUBE OF PORTEX 7 VIA TPIECE @ 8LPM, TOLERATING WELL. NO SOB, NOT IN DISTRESS. OLIVER PICC LINE WITH D5NS @ 125ML/HR INFUSING WELL. SITE AND PATENT, CLEAN, DRY AND INTACT. WITH FLEXISEAL WITH BROWN LIQUID STOOL NOTED. GTUBE PATENT AND IN PLACE WITH GLUCERNA 1.2 @65 ML/HR. NO PAIN NOTED. CALL LIGHT IN REACH, SIDE RAILS UP, BED LOCKED, LOW AND AT SEMI-DANIELS'S POSITION. WILL CONTINUE TO MONITOR.
[2019-04-08 08:00] VITALS: BP 100/55
[2019-04-08] MEDS: PANTOPRAZOLE 40 MG VIAL IV SCH (08:47)
[2019-04-08] MEDS: ASCORBIC ACID 500 MG TABLET GT SCH (08:47)
[2019-04-08] MEDS: CHLORHEXIDINE GLUCONATE 15 ML UDC MM SCH ×2 (08:47→21:19)
[2019-04-08] MEDS: DOCUSATE SODIUM LIQ 100 MG/10 ML UDC GT SCH (08:48)
[2019-04-08] MEDS: MULTIVIT W/MINERALS 1 TAB TABLET PO SCH (08:48)
[2019-04-08] MEDS: LEVETIRACETAM SOL (5 ML) 100 MG/ML UDC GT SCH ×2 (08:48→21:19)
[2019-04-08] MEDS: FERROUS SULFATE (325 MG) 325 MG/TAB TABLET PO SCH (08:48)
[2019-04-08] MEDS: FAMOTIDINE (20 MG) 20 MG TABLET PO SCH ×2 (08:48→21:19)
[2019-04-08] MEDS: FOLIC ACID 1 MG TABLET GT SCH (08:48)
[2019-04-08] MEDS: VITAMIN B COMP W-C 1 TAB TABLET PO SCH (08:48)
[2019-04-08] MEDS: METOPROLOL TARTRATE 50 MG TABLET PO SCH ×2 (08:49→21:19)
[2019-04-08] MEDS: CLOTRIMAZOLE 1% 15 GM TUBE TP SCH ×2 (09:21→17:59)
[2019-04-08] MEDS: ENOXAPARIN SODIUM 40 MG/0.4 ML DISP.SYRIN SQ SCH (09:21)
[2019-04-08] MEDS: DIGOXIN 0.125 MG TABLET PO SCH (13:13)
[2019-04-08 16:00] VITALS: BP 96/60
--- NOTE | 2019-04-08 19:25 | NUR ---
MS RN CLOSING NOTE: PATIENT IN BED AND OBTUNDED. CONTACT ISOLATION PRECAUTIONS IN PLACE. WITH TRACH TUBE OF PORTEX 7 VIA TPIECE @ 8LPM, TOLERATING WELL. NO SOB, NOT IN DISTRESS. OLIVER PICC LINE WITH D5NS ORDERED FOR INFUSION @ 125ML/HR. SITE AND PATENT, CLEAN, DRY AND INTACT. WITH FLEXISEAL WITH BROWN LIQUID STOOL NOTED. GTUBE PATENT AND IN PLACE WITH GLUCERNA 1.2 @65 ML/HR. NO PAIN NOTED. CALL LIGHT IN REACH, SIDE RAILS UP, BED LOCKED, LOW AND AT SEMI-DANIELS'S POSITION. WILL ENDORSE TO ONCOMING SHIFT FOR SOLA.
[2019-04-08 20:00] VITALS: BP 122/68
[2019-04-08] MEDS: GLUCERNA 1.2 1,000 ML BOTTLE GT PRN (21:13)
[2019-04-08] MEDS: SENNOSIDES 8.6 MG TABLET GT SCH (21:19)
[2019-04-09] MEDS: BLOOD SUGAR DIAGNOSTIC 1 EACH STRIP IN SCH ×4 (00:44→18:23)
[2019-04-09] MEDS: HYDROCODONE/APAP 5/325MG 1 EACH TABLET PO PRN ×2 (00:45→05:42)
[2019-04-09] MEDS: METOCLOPRAMIDE HCL 10 MG TABLET GT SCH ×5 (00:45→23:49)
[2019-04-09] MEDS: INSULIN REGULAR, HUMAN 100 UNIT/ML 3 ML VIAL SQ PRN ×4 (00:51→18:26)
[2019-04-09] MEDS: IPRATROPIUM NEB FS 0.5 MG/2.5 ML AMPUL.NEB IH SCH ×4 (01:32→20:07)
[2019-04-09 04:00] VITALS: BP 110/61
[2019-04-09] MEDS: PROSOURCE / PROSTAT (PYXIS) 30 ML UDC GT SCH ×3 (05:40→23:57)
[2019-04-09] MEDS: IV D5/ 0.9% NACL 1,000 ML IV PRN ×2 (05:40→14:33)
[2019-04-09 06:52] LABS: BASOPHILS # (AUTO) 0.1 /CMM (0.0-0.2); BASOPHILS % (AUTO) 0.6 % (0.0-2.0); EOSINOPHILS % (AUTO) 2.6 % (0.0-6.0); HEMATOCRIT 27 % (39-51); HEMOGLOBIN 8.8 g/dL (13.5-17.5); LYMPHOCYTES # (AUTO) 2.4 /CMM (0.8-4.8); LYMPHOCYTES % (AUTO) 26.9 % (20.0-44.0); MEAN CORPUSCULAR HGB CONC 32 g/dl (31.0-36.0); MEAN CORPUSCULAR VOLUME 89 fL (80-96); MONOCYTES % (AUTO) 10.7 % (2.0-12.0); NEUTROPHILS # (AUTO) 5.2 /CMM (1.8-8.9); NEUTROPHILS % (AUTO) 59.2 % (43.0-81.0); PLATELET COUNT (AUTO) 300 /CMM (150-450); RED BLOOD CELL COUNT(AUTO) 3.08 MIL/uL (4.5-6.0); WHITE BLOOD COUNT (AUTO) 8.8 K/uL (4.3-11.0)
--- NOTE | 2019-04-09 07:00 | NUR ---
MS RN OPENING NOTE: RECEIVED PATIENT IN BED AND OBTUNDED. CONTACT ISOLATION PRECAUTIONS IN PLACE, STAFF AWARE AND COMPLIANCE OBSERVED. WITH TRACH TUBE AND RECEIVING 8L OF O2 VIA COOL AEROSOL, TOLERATING WELL. NO SOB, NOT IN DISTRESS. OLIVER PICC LINE WITH D5NS @ 125ML/HR INFUSING WELL. SITE AND PATENT, CLEAN, DRY AND INTACT. WITH FLEXISEAL WITH BROWN LIQUID STOOL NOTED AND BEASLEY CATHETER WITH CLEAR, YELLOW URINE. GTUBE PATENT AND IN PLACE WITH GLUCERNA 1.2 @65 ML/HR. NO PAIN NOTED. CALL LIGHT IN REACH, SIDE RAILS UP, BED LOCKED, LOW AND AT SEMI-DANIELS'S POSITION. WILL CONTINUE TO MONITOR Addendum: 04/09/19 at 1919 by JERRELL MENDENHALL RN GT FEEDING OF 50MLS/HR
[2019-04-09 07:55] LABS: CALCIUM, SERUM 8.6 mg/dL (8.5-10.1); CREATININE 0.5 mg/dL (0.6-1.3); MAGNESIUM 2.7 mg/dL (1.8-2.4); PHOSPHORUS 3.9 mg/dL (2.5-4.9); POTASSIUM 4.5 mmol/L (3.5-5.1)
[2019-04-09 08:00] VITALS: BP 110/64
[2019-04-09] MEDS: VITAMIN B COMP W-C 1 TAB TABLET PO SCH (08:57)
[2019-04-09] MEDS: PANTOPRAZOLE 40 MG VIAL IV SCH (08:57)
[2019-04-09] MEDS: METOPROLOL TARTRATE 50 MG TABLET PO SCH ×2 (08:57→23:48)
[2019-04-09] MEDS: CHLORHEXIDINE GLUCONATE 15 ML UDC MM SCH ×2 (08:57→23:53)
[2019-04-09] MEDS: MULTIVIT W/MINERALS 1 TAB TABLET PO SCH (08:57)
[2019-04-09] MEDS: FAMOTIDINE (20 MG) 20 MG TABLET PO SCH ×2 (08:58→23:50)
[2019-04-09] MEDS: ASCORBIC ACID 500 MG TABLET GT SCH (08:58)
[2019-04-09] MEDS: CLOTRIMAZOLE 1% 15 GM TUBE TP SCH ×2 (08:58→17:56)
[2019-04-09] MEDS: FERROUS SULFATE (325 MG) 325 MG/TAB TABLET PO SCH (08:58)
[2019-04-09] MEDS: DOCUSATE SODIUM LIQ 100 MG/10 ML UDC GT SCH ×2 (08:58→23:46)
[2019-04-09] MEDS: LEVETIRACETAM SOL (5 ML) 100 MG/ML UDC GT SCH ×2 (08:58→23:53)
[2019-04-09] MEDS: FOLIC ACID 1 MG TABLET GT SCH (08:58)
[2019-04-09] MEDS: ENOXAPARIN SODIUM 40 MG/0.4 ML DISP.SYRIN SQ SCH (10:02)
[2019-04-09] MEDS: DIGOXIN 0.125 MG TABLET PO SCH (12:34)
[2019-04-09 16:00] VITALS: BP 120/75
--- NOTE | 2019-04-09 19:25 | NUR ---
MS RN CLOSING NOTE: PATIENT IN BED AND OBTUNDED. CONTACT ISOLATION PRECAUTIONS IN PLACE, STAFF AWARE AND COMPLIANCE OBSERVED. WITH TRACH TUBE AND RECEIVING 8L OF O2 VIA COOL AEROSOL, TOLERATING WELL. NO SOB, NOT IN DISTRESS. OLIVER PICC LINE WITH D5NS @ 125ML/HR INFUSING WELL. SITE AND PATENT, CLEAN, DRY AND INTACT. WITH FLEXISEAL WITH BROWN LIQUID STOOL NOTED AND BEASLEY CATHETER WITH CLEAR, YELLOW URINE. GTUBE PATENT AND IN PLACE WITH GLUCERNA 1.2 @50 ML/HR. AWAITING EVALUATION OF GTUBE SITE PRIOR FOR DISCHARGE. NO PAIN NOTED. CALL LIGHT IN REACH, SIDE RAILS UP, BED LOCKED, LOW AND AT SEMI-DANIELS'S POSITION. WILL ENDORSE TO ONCOMING SHIFT FOR SOLA.
[2019-04-09 19:54] VITALS: BP 100/51
[2019-04-09 20:00] VITALS: BP 100/51
[2019-04-09] MEDS: SENNOSIDES 8.6 MG TABLET GT SCH (23:49)
[2019-04-10] MEDS: INSULIN REGULAR, HUMAN 100 UNIT/ML 3 ML VIAL SQ PRN ×2 (01:25→12:46)
[2019-04-10] MEDS: IV D5/ 0.9% NACL 1,000 ML IV PRN ×2 (01:26→11:20)
[2019-04-10] MEDS: IPRATROPIUM NEB FS 0.5 MG/2.5 ML AMPUL.NEB IH SCH ×3 (01:46→13:30)
[2019-04-10 04:00] VITALS: BP_SYST 98; BP_SYST 99; BP_DIAS 60; BP_DIAS 68
[2019-04-10] MEDS: METOCLOPRAMIDE HCL 10 MG TABLET GT SCH ×2 (06:06→11:20)
[2019-04-10] MEDS: PROSOURCE / PROSTAT (PYXIS) 30 ML UDC GT SCH ×2 (06:07→12:37)
[2019-04-10] MEDS: BLOOD SUGAR DIAGNOSTIC 1 EACH STRIP IN SCH ×2 (07:46)
[2019-04-10 08:00] VITALS: BP 100/60
--- NOTE | 2019-04-10 08:00 | NUR ---
YOUTH DIRECTOR NOTE RECEIVED PATIENT IN BED, AWAKE WITH TRACH TO COOLER AEROSOL , TOLERATED WELL SAT 98% , WOITH BEASLEY TO GRAVITY WITH YELLOW COLOR URINE , WITH FLEXE SEAL IN PLACE, WITH G TUBE FEEDING ORDERED AT 50 ML TOLERATED WELL NO RESIDUAL NO LEAKAGE AT G TUBE SITE . OLIVER PICC LINE IN PLACE, ON IVF ORDERED BED IN LOWEST AND LOCKED POSITION , SEEN BY DR SAHNI AT THIS TIME OK TO D\C TO SNF , WILL F\U
[2019-04-10] MEDS: ENOXAPARIN SODIUM 40 MG/0.4 ML DISP.SYRIN SQ SCH (09:14)
[2019-04-10] MEDS: VITAMIN B COMP W-C 1 TAB TABLET PO SCH (09:15)
[2019-04-10] MEDS: FOLIC ACID 1 MG TABLET GT SCH (09:15)
[2019-04-10] MEDS: ASCORBIC ACID 500 MG TABLET GT SCH (09:15)
[2019-04-10] MEDS: METOPROLOL TARTRATE 50 MG TABLET PO SCH (09:15)
[2019-04-10] MEDS: PANTOPRAZOLE 40 MG VIAL IV SCH (09:15)
[2019-04-10] MEDS: CHLORHEXIDINE GLUCONATE 15 ML UDC MM SCH (09:15)
[2019-04-10] MEDS: FAMOTIDINE (20 MG) 20 MG TABLET PO SCH (09:15)
[2019-04-10] MEDS: MULTIVIT W/MINERALS 1 TAB TABLET PO SCH (09:15)
[2019-04-10] MEDS: LEVETIRACETAM SOL (5 ML) 100 MG/ML UDC GT SCH (09:16)
[2019-04-10] MEDS: CLOTRIMAZOLE 1% 15 GM TUBE TP SCH ×2 (09:17→16:37)
[2019-04-10] MEDS: FERROUS SULFATE (325 MG) 325 MG/TAB TABLET PO SCH (09:17)
--- NOTE | 2019-04-10 11:30 | NUR ---
GOLF BALL INSPECTOR NOTE CONT ON G TUBE FEEDING, NOT IN DISTRESS, ORAL AND TRACH SUCTION DONE ,WILL MONITOR
[2019-04-10 12:00] VITALS: BP 105/66
[2019-04-10] MEDS: DIGOXIN 0.125 MG TABLET PO SCH (12:45)
--- NOTE | 2019-04-10 14:01 | NUR ---
HYDROELECTRIC STATION CHIEF NOTE CALLED TO SNF REPORT GIVEN ,SPOKE WITH ANTHONY ,PER DR KAITLYN LEVINE TO LEAVE PICC LINE
[2019-04-10 16:00] VITALS: BP 149/79
--- NOTE | 2019-04-10 17:25 | NUR ---
MS RN NOTE AMBULANCE ARRIVED FLEXE SEAL AND BEASLEY CATH IS REMOVED ORDERED ,PICC LINE ON OLIVER IN PLACED FLUSHED WELL, NO BELONGING SISTER AND BROTHER AWARE THAT PATIENT WILL BE DISCHARGE TO SNF , WENT TOSNF WITH STABLE CONDITION BY AMBULANCE
== END 2019-04-10 17:25 | DRG 870 ==
LOC: ER 17:50 → ICU 19:18 → TELE-TD 03-31 11:58 → TELE1 04-03 11:25 → MEDSG1 04-07 09:49
PROVIDERS: ADMIT Student in an Organized Health Care Education/Training Program; ATTEND Student in an Organized Health Care Education/Training Program
PROC: 5A1955Z Respiratory Ventilation, Greater than 96 Consecutive Hours (ICD-10-PCS; principal; 2019-03-28)
PROC: 02HV33Z Insertion of Infusion Device into Superior Vena Cava, Percutaneous Approach (ICD-10-PCS; 2019-03-29)
PROC: B548ZZA Ultrasonography of Superior Vena Cava, Guidance (ICD-10-PCS; 2019-03-29)
DX: A41.9 Sepsis, unspecified organism (principal); R53.2 Functional quadriplegia; G92 Toxic encephalopathy; J15.1 Pneumonia due to Pseudomonas; E87.1 Hypo-osmolality and hyponatremia; E87.2 Acidosis; D68.69 Other thrombophilia; N39.0 Urinary tract infection, site not specified; Z16.12 Extended spectrum beta lactamase (ESBL) resistance; Z99.11 Dependence on respirator [ventilator] status; J98.11 Atelectasis; J96.10 Chronic respiratory failure, unspecified whether with hypoxia or hypercapnia; R40.3 Persistent vegetative state; Z43.1 Encounter for attention to gastrostomy; B96.20 Unspecified Escherichia coli [E. coli] as the cause of diseases classified elsewhere; R65.20 Severe sepsis without septic shock; D63.8 Anemia in other chronic diseases classified elsewhere; Z87.820 Personal history of traumatic brain injury; E87.6 Hypokalemia; Z93.0 Tracheostomy status; R73.9 Hyperglycemia, unspecified; Z98.2 Presence of cerebrospinal fluid drainage device; G40.909 Epilepsy, unspecified, not intractable, without status epilepticus; M24.571 Contracture, right ankle; M24.572 Contracture, left ankle; M24.532 Contracture, left wrist; M24.531 Contracture, right wrist; E78.1 Pure hyperglyceridemia; I10 Essential (primary) hypertension; R13.10 Dysphagia, unspecified
CPT/HCPCS: 31720; 36415; 36600; 71045-TC; 74018; 80048-TC; 80061-TC; 80076-TC; 80162-TC; 81000-TC; 82247-TC; 82248-TC; 82533; 82803-TC; 82962-TC; 83605-TC; 83735-TC; 84100-TC; 84443-TC; 84484-TC; 85025-TC; 85378-TC; 85730-TC; 87040-TC; 87070-TC; 87081-TC; 87086-TC; 87186-TC; 93971-TC; 94002-TC; 94003-TC; 94640-TC; 94664-TC; 94760-TC; 94762-TC; 99082-TC; A4216; A4217; A4623; A6253; A6403; A7526; C1751; C9113; G0378; J0696; J1650; J1815; J1953; J1956; J2020; J2185; J2543; J3480; J3490; J7030; J7040; J7042; J7050; J7060; J7070; J7120; J8597; Q9963